=== PATIENT | male | born 1945 | race Caucasian/White ===

== ENCOUNTER 2016-05-31 11:59 | Inpatient (IN) | payer MEDICARE, OTHER ==
[~2016-05-31] VITALS: Ht 177.8 cm; Wt 78.7 kg
[2016-05-31] VITALS (9 sets, daily range): BP systolic 88–121; BP diastolic 53–96
[2016-05-31] MEDS ORDERED: ALBUTEROL/IPRATROPIUM 3MG-0.5MG/3ML (DUONEB) NEB VIAL INH ONE (12:10)
[2016-05-31] MEDS ORDERED: NS IV 500 ML 500 ML IV SCH (12:10)
[2016-05-31] MEDS ORDERED: SODIUM CHLORIDE FLUSH 3 ML SYR IV ONE (12:10)
[2016-05-31 12:32] LABS: BASOPHILS % (AUTO) 0 % (0-2); EOSINOPHILS # (AUTO) 0.2 10^3uL; EOSINOPHILS % (AUTO) 1 % (0-4); LYMPHOCYTES # (AUTO) 1.4 X10^3; MEAN CORPUSCULAR HEMOGLOBIN 29.1 PG (26.0-34.0); MEAN CORPUSCULAR HGB CONC 32.4 g/dL (31.0-37.0); MEAN CORPUSCULAR VOLUME 90 FL (80-100); MEAN PLATELET VOLUME 8.9 FL (6.0-9.5); MONOCYTES # (AUTO) 1.6 X10^3; MONOCYTES % (AUTO) 11 % (3-11); NEUTROPHILS # (AUTO) 10.8 X10^3; NEUTROPHILS % (AUTO) 77 % (51-67); PLATELET COUNT 410 10^3uL (150-450); WHITE BLOOD COUNT 14.13 10^3uL (4.0-11.0)
[2016-05-31 12:50] LABS: ALBUMIN 3.8 g/dL (3.4-5.0); ALKALINE PHOSPHATASE 109 U/L (38-126); ANION GAP 16.7 MEQ/L (3-15); BUN/CREATININE RATIO 19 (10-20); CALCULATED IONIZED CALCIUM 4.1 mg/dL (3.8-4.6); CREATINE KINASE 39 U/L (55-170); TOTAL PROTEIN 6.8 g/dL (6.4-8.5)
[2016-05-31] MEDS ORDERED: DILTIAZEM IV FOR DRIP 125 MG in SODIUM CHLORIDE 100 ML IV PRN (14:05)
[2016-05-31] MEDS ORDERED: DILTIAZEM 25 MG/5 ML (CARDIZEM) VIAL IV ONE (14:05)
--- NOTE | 2016-05-31 17:20 | NUR ---
Patient arrives to room 345. monitors placed and assessment is ongoing
--- NOTE | 2016-05-31 17:43 | NUR ---
Late Entry: ICU nurse (Av) notified that Patient still needed to provide Urine Specimen.
[2016-05-31] MEDS ORDERED: VANCOMYCIN 1,000 MG in SODIUM CHLORIDE 250 ML IV ONE (19:10)
[2016-05-31] MEDS ORDERED: VANCOMYCIN PHARMACY PROTOCOL IV SCH (19:10)
--- NOTE | 2016-05-31 19:15 | NUR ---
Report received, care assumed. Pt resting in bed. O2 on at 6L per oxymask. Pt denies needs now.
--- NOTE | 2016-05-31 19:16 | NUR ---
report given to Inez LEROY and care relinquished
--- NOTE | 2016-05-31 19:30 | NUR ---
Lab in with pt to draw. Pt cooperative. Assessment completed, pt denies discomfort. Reports feeling better than he did upon admittance. No other needs at this time. Call light in reach.
--- NOTE | 2016-05-31 19:45 | NUR ---
Pt's spouse arrived. Is at bedside with pt. No needs.
[2016-05-31] MEDS ORDERED: SODIUM CHLORIDE 250 ML ONE (19:53)
[2016-05-31] MEDS ORDERED: VANCOMYCIN 1000 MG VIAL ONE (19:54)
[2016-05-31] MEDS ORDERED: VANCOMYCIN IV SCH (20:10)
[2016-05-31] MEDS ORDERED: SODIUM CHLORIDE IV SCH (20:10)
--- NOTE | 2016-05-31 20:10 | NUR ---
Started 2nd IV site to RFA 20G, 1st attempt successful.
[2016-05-31] MEDS: SODIUM CHLORIDE FLUSH 10 ML SYR IV PRN (20:21)
--- NOTE | 2016-05-31 20:30 | NUR ---
IV Vanco abx infusing. Decreased Cardizem drip to 10ml/hr based on blood pressure 88/57. Heart rate 88. Will continue to monitor.
--- NOTE | 2016-05-31 20:35 | NUR ---
Decreased Cardizem drip to 8ml/hr. BP 92/56, pulse rate 89. Will continue to monitor.
--- NOTE | 2016-05-31 20:50 | NUR ---
Cardizem drip remains at 8 ml/hr. Pulse rate increased to 95-98. BP 102/55. Will continue to monitor.
[2016-05-31] MEDS ORDERED: ALBUTEROL/IPRATROPIUM 3MG-0.5MG/3ML (DUONEB) NEB VIAL INH PRN (21:05)
[2016-05-31] MEDS ORDERED: ALBUTEROL HFA (VENTOLIN HFA) COMMON CANNISTER IH PRN (21:05)
--- NOTE | 2016-05-31 21:20 | NUR ---
Decreased Diltiazem drip to 5 mg/hr. BP 94/56. Will continue to monitor.
--- NOTE | 2016-05-31 22:20 | NUR ---
Stopped Diltiazem drip. Will continue to monitor.
--- NOTE | 2016-05-31 22:38 | NUR ---
Changed oxy mask to NC per pt request. O2 on at 4L per NC. Pt states he normally uses 4L at home. Explained to pt O2 sat will be monitored and oxy mask may still be needed. Pt stated his understanding. No other needs. Call light in reach.
[2016-05-31] MEDS: CEFEPIME 1,000 MG in SODIUM CHLORIDE 100 ML IV SCH (22:53)
--- NOTE | 2016-05-31 23:15 | NUR ---
Pt's tele shows occ. sinus rhythm activity. Appears to be converting from A-flutter/A-fib. Will continue to monitor.
[2016-06-01] VITALS (20 sets, daily range): BP systolic 106–142; BP diastolic 58–96
--- NOTE | 2016-06-01 00:10 | NUR ---
Pt's O2 sat dropped to 85-86%. Placed back on oxy mask at 6L.
--- NOTE | 2016-06-01 05:15 | NUR ---
Pt resting well. No signs discomfort. Pt has periods of apnea during sleep, O2 sats decline to 84-86% during thos etimes. Otherwise, O2 sats are 94-98% on 6L per oxymask. No needs at this time. Call light in reach.
--- NOTE | 2016-06-01 05:40 | NUR ---
Pt awake, voided without difficulty in urinal. Urine specimen collected. Pt also gave sputum sample for lab specimen. No other needs at this time. Call light in reach. IVF continue to infuse. Cardizem drip remains off. Will continue to monitor.
[2016-06-01] MEDS: CEFEPIME 1,000 MG in SODIUM CHLORIDE 100 ML IV SCH ×3 (05:48→23:04)
[2016-06-01 06:38] LABS: BASOPHILS % (AUTO) 0 % (0-2); EOSINOPHILS # (AUTO) 0.2 10^3uL; EOSINOPHILS % (AUTO) 2 % (0-4); LYMPHOCYTES # (AUTO) 1.4 X10^3; MEAN CORPUSCULAR HEMOGLOBIN 28.9 PG (26.0-34.0); MEAN CORPUSCULAR HGB CONC 31.8 g/dL (31.0-37.0); MEAN CORPUSCULAR VOLUME 91 FL (80-100); MONOCYTES # (AUTO) 1.7 X10^3; MONOCYTES % (AUTO) 15 % (3-11); NEUTROPHILS # (AUTO) 8.1 X10^3; NEUTROPHILS % (AUTO) 70 % (51-67); PLATELET COUNT 344 10^3uL (150-450); WHITE BLOOD COUNT 11.53 10^3uL (4.0-11.0)
[2016-06-01 06:51] LABS: ANION GAP 11.1 MEQ/L (3-15); TOTAL PROTEIN 5.9 g/dL (6.4-8.5)
[2016-06-01 07:56] LABS: BILIRUBIN,URINE Negative (Negative); CLARITY,URINE Clear; COLOR,URINE Yellow; GLUCOSE, URINE (UA) Negative (Negative); LEUKOCYTE ESTERASE ,URINE Negative (Negative); PH,URINE 5.5 (5.0 - 8.0); UROBILINOGEN,URINE 0.2 mg/dL (0.2-1.0)
[2016-06-01] MEDS ORDERED: AZELASTINE NS PRN (08:25)
[2016-06-01] MEDS ORDERED: VANCOMYCIN 1,000 MG in SODIUM CHLORIDE 250 ML IV SCH (09:00)
[2016-06-01] MEDS: TIOTROPIUM 18 MCG/CAP (SPIRIVA) INHALER (5 CAPS) IH SCH (09:11)
--- NOTE | 2016-06-01 09:13 | NUR ---
NUTRITION ASSESSMENT Level 1 Patient: Dwight EnglishJr. Age/Sex: 70/M Date Screened: 06-01-16 Weight: 186.7#/84.9 kg Height: 70 inches Primary Diagnosis: a fib Diet Order: cardiac Relevant labs: glucose 105 Food allergies: N Nutrition Assessment Criteria Age over 80: N Body Mass Index (BMI) under 19: N Admission Screening Indicates Risk? 3 points Moderate/High Risk Diagnosis: N TPN or PPN: N NPO or clear liquid diet: N Serum Glucose <70 or >180: N Hgb A1c >6.7: N/A Total: 3 points Risk Screen: __ Patient at low nutritional risk based on available data; reevaluate in 5-7 days _X_ Patient at moderate nutritional risk based on available data; reevaluate in 3-5 days __ Patient at high nutritional risk; complete Nutrition Assessment within 48 hours of admission. Comments: Weight is up compared with last admission (173# in 2015); pt.'s UBW runs between 170-180#. No GI concerns at this time. He likes chocolate Ensure. Will reassess as documented above.
[2016-06-01] MEDS: ENOXAPARIN 40 MG/0.4 ML (LOVENOX) SYR SC SCH (09:32)
[2016-06-01] MEDS: FAMOTIDINE 20 MG (PEPCID) TABLET PO SCH ×2 (09:32→21:05)
[2016-06-01] MEDS: VANCOMYCIN 1500 MG in NS IV 300 ML IV SCH ×6 (09:54→21:04)
--- NOTE | 2016-06-01 10:30 | NUR ---
Pt stood at the side of the bed to use the urinal and became very SOA. Pts sat dropped down to 83 and required the oxymask to be reapplied. Pts color was ashen and it took about 3 minutes for him to return to normal color and sat to return to the 90's. Family at bedside. Pt voided 350 cc of dark sandip, odorous urine. Instructed pt to drink more fluids. states at home he drinks several cups of water a day.
[2016-06-01] MEDS ORDERED: methylPREDNISolone 125 MG (Solu-MEDROL) VIAL IV ONE (11:00)
--- NOTE | 2016-06-01 11:00 | NUR ---
New order received from Dr. Negron. Solu Medrol 125 mg IV given per orders. IV continues to infuse at 100cc/hr. Pt has O2 going at 5L/NC.
[2016-06-01] MEDS: SODIUM CHLORIDE FLUSH 10 ML SYR IV PRN (11:01)
[2016-06-01] MEDS: SPIRONOLACTONE 25 MG (ALDACTONE) TABLET PO SCH (12:00)
--- NOTE | 2016-06-01 12:43 | NUR ---
MULTIDISCIPLINARY MTG/DR. KAM: Pt. receiving vanco and cefepime. Pt. has been on 5L oxygen and he got up to use the restroom and his O2 dropped to 83% and he was put on oxymask at and it took awhile for him to recover. Pt. normally uses 2L continuously at home. Pt. has breathing treatments ordered.. No discharge needs identified at this time.
--- NOTE | 2016-06-01 18:05 | NUR ---
MED REC COMPLETE--Current med list obtained via patient interview and prescription bottles. Patient interview conducted by Sharif English PharmD Candidate 2017. Patient is aware of what he is taking and how. Patient had previously been on Spiriva Respimat, but prescriber switched to Stiolto Respimat. Patient tried Stiolto for a week and decided it did not work; he is currently on neither one of these medications. Patient was prescribed metoprolol 25 mg BID with meals. This medication was not continued in the outpatient setting; it may have slipped through the cracks.
--- NOTE | 2016-06-01 19:00 | NUR ---
Pt has been standing at the bedside to use the urinal, when he does he becomes SOA. After eating lunch pt became SOA and required that the oxymask be reapplied. Pt has had and stepdaughter at his bedside most of the day. Dr. Negron was present at 1600 to talk with pt and family about pt condition. Will continue to monitor closely. Monitor continues to shows ST. IV site patent without redness or edema. Edema noted in lower extremities.
--- NOTE | 2016-06-01 19:10 | NUR ---
Report received, care assumed. Pt sitting up on side of bed. Reports feeling better today, still not great though. No needs at this time. Call light in reach.
[2016-06-01] MEDS ORDERED: VANCOMYCIN COMPOUNDED BY PHARMACY IV SCH (21:00)
--- NOTE | 2016-06-01 22:30 | NUR ---
Pt resting well. No c/o discomfort or SOA. IVF continue to infuse. No needs at this time. Call light in reach.
[2016-06-02] VITALS (8 sets, daily range): BP systolic 126–161; BP diastolic 76–94
--- NOTE | 2016-06-02 01:00 | NUR ---
Pt appears to be sleeping, eyes closed, respirations even et unlabored. No signs discomfort. Pt has been up once to use urinal, stood at bed with no adverse effect. Call light in reach. No needs at this time.
--- NOTE | 2016-06-02 04:40 | NUR ---
Pt awake, requests coffee. Pt ready [facility]. Pt very talkative, wants to sit up for a while. O2 sats at 97-98%, reduced O2 to 3L per NC. Will continue to monitor. Coffee provided for pt. No other needs at this time.
[2016-06-02] MEDS: CEFEPIME 1,000 MG in SODIUM CHLORIDE 100 ML IV SCH ×3 (05:30→22:00)
--- NOTE | 2016-06-02 05:35 | NUR ---
Pt resting quietly in bed with lights turned down again. O2 sats 95% on 3L per NC. No needs at this time. Call light in reach.
[2016-06-02 06:18] LABS: BASOPHILS % (AUTO) 0 % (0-2); EOSINOPHILS % (AUTO) 0 % (0-4); LYMPHOCYTES # (AUTO) 0.7 X10^3; MEAN CORPUSCULAR HEMOGLOBIN 28.9 PG (26.0-34.0); MEAN CORPUSCULAR HGB CONC 32.6 g/dL (31.0-37.0); MEAN CORPUSCULAR VOLUME 89 FL (80-100); MEAN PLATELET VOLUME 9.3 FL (6.0-9.5); MONOCYTES # (AUTO) 0.6 X10^3; MONOCYTES % (AUTO) 7 % (3-11); NEUTROPHILS # (AUTO) 7.9 X10^3; NEUTROPHILS % (AUTO) 85 % (51-67); PLATELET COUNT 359 10^3uL (150-450); WHITE BLOOD COUNT 9.25 10^3uL (4.0-11.0)
[2016-06-02 06:43] LABS: ALBUMIN 3.2 g/dL (3.4-5.0); ANION GAP 13.8 MEQ/L (3-15); MAGNESIUM* 1.9 mg/dL (1.6-2.3); PHOSPHORUS 3.3 mg/dL (2.4-4.9)
[2016-06-02] MEDS: TIOTROPIUM 18 MCG/CAP (SPIRIVA) INHALER (5 CAPS) IH SCH (08:03)
[2016-06-02] MEDS ORDERED: FUROSEMIDE 40 MG (LASIX) TAB PO PRN ×2 (08:05→21:00)
[2016-06-02] MEDS: VANCOMYCIN 1500 MG in NS IV 300 ML IV SCH ×3 (09:00)
[2016-06-02] MEDS ORDERED: DILTIAZEM CD 180 MG (CARDIZEM CD) CAP PO SCH (09:00)
[2016-06-02] MEDS ORDERED: PANTOPRAZOLE 40 MG (PROTONIX) TAB PO SCH (09:00)
--- NOTE | 2016-06-02 12:34 | NUR ---
Pt. noted to have skin tear to L lateral forearm below elbow. Pt. states his skin tears easily. Skin cleansed with NS, telfa applied and secured with Coban.
[2016-06-02] MEDS: SPIRONOLACTONE 25 MG (ALDACTONE) TABLET PO SCH (13:42)
[2016-06-02] MEDS: FAMOTIDINE 20 MG (PEPCID) TABLET PO SCH ×2 (13:42→21:24)
[2016-06-02] MEDS: ENOXAPARIN 40 MG/0.4 ML (LOVENOX) SYR SC SCH (13:43)
[2016-06-02] MEDS ORDERED: VANCOMYCIN COMPOUNDED BY PHARMACY IV SCH (13:49)
--- NOTE | 2016-06-02 15:10 | NUR ---
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 Sputum culture positive for gram positive cocci. O: 70 y/o M, wt = 85.3 kg, SCr = 0.60 ZvGp=165.6 ml/min A/P:Started on Vanco 1500mg q12h. Trough today at 13.2, will continue with current dosing.
[2016-06-02] MEDS ORDERED: DILTIAZEM IV FOR DRIP 125 MG in SODIUM CHLORIDE 100 ML IV PRN (18:40)
[2016-06-02] MEDS ORDERED: COMPOUNDED BY PHARMACY IV SCH (18:40)
[2016-06-02] MEDS ORDERED: methylPREDNISolone 125 MG (Solu-MEDROL) VIAL IV SCH (18:45)
[2016-06-02] MEDS ORDERED: methylPREDNISolone 125 MG (Solu-MEDROL) VIAL IM ONE (18:45)
--- NOTE | 2016-06-02 19:08 | NUR ---
Arrives per w/c accompanied by ICU staff. Alert and oriented x4.Skin w/p/d. Resp regular and unlabored.
[2016-06-02] MEDS ORDERED: VANCOMYCIN PHARMACY PROTOCOL IV SCH (19:10)
[2016-06-02] MEDS ORDERED: AZELASTINE NS PRN (20:25)
[2016-06-02] MEDS: MOMETASONE INH SCH (20:44)
[2016-06-02] MEDS ORDERED: SODIUM CHLORIDE 250 ML ONE (20:58)
[2016-06-02] MEDS ORDERED: VANCOMYCIN 500 MG VIAL ONE (20:59)
[2016-06-02] MEDS ORDERED: VANCOMYCIN 1000 MG VIAL ONE (20:59)
[2016-06-02] MEDS ORDERED: ATORVASTATIN 10 MG (LIPITOR) TABLET PO SCH (21:00)
[2016-06-02] MEDS ORDERED: MOMETASONE INH SCH (21:00)
[2016-06-02] MEDS ORDERED: ALBUTEROL HFA (VENTOLIN HFA) COMMON CANNISTER IH PRN (21:05)
[2016-06-02] MEDS: ATORVASTATIN 10 MG (LIPITOR) TABLET PO SCH (21:23)
[2016-06-02] MEDS: VANCOMYCIN 1,500 MG, VANCOMYCIN PHARMACY PROTOCOL 1 EACH in SODIUM CHLORIDE 250 ML, SOD... IV SCH (21:28)
[2016-06-02] MEDS ORDERED: SODIUM CHLORIDE FLUSH 0 ML ONE (23:12)
[2016-06-03] VITALS (7 sets, daily range): BP systolic 115–146; BP diastolic 69–85
[2016-06-03] MEDS: CEFEPIME 1,000 MG in SODIUM CHLORIDE 100 ML IV SCH ×3 (06:34→22:00)
[2016-06-03] MEDS: PANTOPRAZOLE 40 MG (PROTONIX) TAB PO SCH (06:34)
[2016-06-03] MEDS: TIOTROPIUM 18 MCG/CAP (SPIRIVA) INHALER (5 CAPS) IH SCH (07:26)
--- NOTE | 2016-06-03 08:00 | NUR ---
Pt sitting upright in chair for breakfast meal. Denies pain, n/v, palpitations. States "I feel real good!" Takes AM meds without difficulty. IVF infusing as ordered. Remains on 3L nc- resp even, nonlab. Skin warm dry intact. Call light within reach-calls appropriately.
[2016-06-03] MEDS: DILTIAZEM CD 180 MG (CARDIZEM CD) CAP PO SCH (08:09)
[2016-06-03] MEDS: predniSONE 20 MG (DELTASONE) TABLET PO SCH (08:09)
[2016-06-03] MEDS: ENOXAPARIN 40 MG/0.4 ML (LOVENOX) SYR SC SCH (08:09)
[2016-06-03] MEDS: FAMOTIDINE 20 MG (PEPCID) TABLET PO SCH ×2 (08:09→21:00)
[2016-06-03] MEDS: VANCOMYCIN 1,500 MG, VANCOMYCIN PHARMACY PROTOCOL 1 EACH in SODIUM CHLORIDE 250 ML, SOD... IV SCH ×2 (08:12→21:00)
[2016-06-03] MEDS ORDERED: NS FLUSH 3 ML PRN IV (08:35)
[2016-06-03] MEDS: NS FLUSH 3 ML DAILY IV SCH (09:00)
--- NOTE | 2016-06-03 11:37 | NUR ---
Pt ambulated to shower with walker, accompanied by Perla Weeks PT and [employer] to help with IV pole.
[2016-06-03] MEDS: ALBUTEROL/IPRATROPIUM 3MG-0.5MG/3ML (DUONEB) NEB VIAL INH PRN ×2 (11:59→18:54)
--- NOTE | 2016-06-03 12:07 | NUR ---
Pt finished in shower, is SOA, Tachy @111 bpm. Requesting breathing tx- Nicole RT to room for this. TEDS placed- 1+ pitting edema to BLE.
[2016-06-03] MEDS ORDERED: SODIUM CHLORIDE FLUSH 10 ML SYR IV PRN (12:10)
[2016-06-03] MEDS: SPIRONOLACTONE 25 MG (ALDACTONE) TABLET PO SCH (12:10)
--- NOTE | 2016-06-03 14:00 | NUR ---
IV SL at this time per BERTO from Dr. Paz.
[2016-06-03] MEDS: FUROSEMIDE 20 MG (LASIX) TAB PO SCH (15:48)
--- NOTE | 2016-06-03 15:58 | NUR ---
Tele dc'd via orders from Dr. Dominguez
--- NOTE | 2016-06-03 18:13 | NUR ---
Pt eating supper in chair. Denies needs at this time.
[2016-06-03] MEDS: MOMETASONE INH SCH (18:54)
--- NOTE | 2016-06-03 20:00 | NUR ---
Resting in bed watching TV. Alert and oriented. Denies pain. HOB elevated 30 degrees. No respiratory distress noted. Oxygen remains on at 4 lpm per nasal cannula. IV site without complications noted. Voiding yellow urine per urinal. Sits at edge of the bed to void. No concerns or needs at this time.
[2016-06-03] MEDS: ATORVASTATIN 10 MG (LIPITOR) TABLET PO SCH (21:00)
--- NOTE | 2016-06-03 22:00 | NUR ---
Ready for sleep. Small skin tear on left elbow area cleansed, patted dry and band aid placed loosely over area. TG shapes cut and made into sleeves, per patient request as his skin is fragile and tears easily on the sheets.
[2016-06-04] MEDS: CEFEPIME 1,000 MG in SODIUM CHLORIDE 100 ML IV SCH ×2 (05:43→15:10)
[2016-06-04 06:11] VITALS: BP 114/71
[2016-06-04] MEDS: PANTOPRAZOLE 40 MG (PROTONIX) TAB PO SCH (06:32)
[2016-06-04 06:36] LABS: ALBUMIN 3.5 g/dL (3.4-5.0); ANION GAP 14.4 MEQ/L (3-15); MAGNESIUM* 2.2 mg/dL (1.6-2.3); PHOSPHORUS 3.5 mg/dL (2.4-4.9)
[2016-06-04 07:23] VITALS: BP 125/84
[2016-06-04] MEDS: TIOTROPIUM 18 MCG/CAP (SPIRIVA) INHALER (5 CAPS) IH SCH (07:24)
[2016-06-04] MEDS: ALBUTEROL/IPRATROPIUM 3MG-0.5MG/3ML (DUONEB) NEB VIAL INH SCH ×4 (07:25→20:10)
[2016-06-04] MEDS: FUROSEMIDE 20 MG (LASIX) TAB PO SCH ×2 (07:37→14:37)
[2016-06-04] MEDS: ENOXAPARIN 40 MG/0.4 ML (LOVENOX) SYR SC SCH (07:37)
[2016-06-04] MEDS: predniSONE 20 MG (DELTASONE) TABLET PO SCH (07:38)
[2016-06-04] MEDS: DILTIAZEM CD 180 MG (CARDIZEM CD) CAP PO SCH (07:38)
[2016-06-04] MEDS: VANCOMYCIN 1,500 MG, VANCOMYCIN PHARMACY PROTOCOL 1 EACH in SODIUM CHLORIDE 250 ML, SOD... IV SCH (07:38)
[2016-06-04] MEDS: FAMOTIDINE 20 MG (PEPCID) TABLET PO SCH ×2 (07:38→20:35)
[2016-06-04] MEDS: NS FLUSH 3 ML DAILY IV SCH (07:39)
--- NOTE | 2016-06-04 08:21 | NUR ---
Katlyn Quispe RN spoke to Dr. Paz regarding leaking IV- Dr. Paz gave VORB ok to leave IV out if at baseline O2 status
--- NOTE | 2016-06-04 08:31 | NUR ---
Vancomycin infusion completed due to IV infiltration. Per Dr. Paz no need for new IV site.
[2016-06-04 11:54] VITALS: BP 106/68
[2016-06-04] MEDS: SPIRONOLACTONE 25 MG (ALDACTONE) TABLET PO SCH (12:06)
[2016-06-04 16:00] VITALS: BP 128/78
--- NOTE | 2016-06-04 16:15 | NUR ---
Pt has been indep in room today. Feels "great" expressed multiple times today hopes of going home. Calls appropriately for assist. No IV- okayed to leave out by Dr. Paz. SOA with exertion but quickly recovers within 2-3minutes. Remains on chronic 4L nc.
--- NOTE | 2016-06-04 18:14 | NUR ---
Pt sitting up in chair, eating supper meal. Has previously been in chair with BLE elevated. 2+ Pitting edema. Pt has voided approx 1950ml since 1400. Remains on 4L nc.
[2016-06-04] MEDS: MOMETASONE INH SCH (20:10)
--- NOTE | 2016-06-04 20:13 | NUR ---
Pt found sitting in his chair on 4 l/min NC equal to home use, SPO2 98%, HR 94, RR 18 and non labored with clear BS before and after Duoneb and Asmanex.
[2016-06-04 20:34] VITALS: BP 127/83
[2016-06-04] MEDS: CEFDINIR 300 MG (OMNICEF) CAPSULE PO SCH (20:35)
[2016-06-04] MEDS: ATORVASTATIN 10 MG (LIPITOR) TABLET PO SCH (20:35)
[2016-06-05 00:24] VITALS: BP 119/81
[2016-06-05 04:44] VITALS: BP 105/76
--- NOTE | 2016-06-05 06:01 | NUR ---
Stated early this morning that he slept better than he had in days. Was without complaint throughout the night and noted edema in BLE is improved some.
[2016-06-05] MEDS: PANTOPRAZOLE 40 MG (PROTONIX) TAB PO SCH (06:40)
[2016-06-05] MEDS: ALBUTEROL/IPRATROPIUM 3MG-0.5MG/3ML (DUONEB) NEB VIAL INH SCH ×2 (07:40→12:11)
[2016-06-05] MEDS: TIOTROPIUM 18 MCG/CAP (SPIRIVA) INHALER (5 CAPS) IH SCH (07:40)
[2016-06-05 08:24] VITALS: BP 124/81
[2016-06-05] MEDS: predniSONE 20 MG (DELTASONE) TABLET PO SCH (08:34)
[2016-06-05] MEDS: DILTIAZEM CD 180 MG (CARDIZEM CD) CAP PO SCH (08:34)
[2016-06-05] MEDS: CEFDINIR 300 MG (OMNICEF) CAPSULE PO SCH (08:35)
[2016-06-05] MEDS: FUROSEMIDE 20 MG (LASIX) TAB PO SCH (08:35)
[2016-06-05] MEDS: FAMOTIDINE 20 MG (PEPCID) TABLET PO SCH (08:35)
[2016-06-05] MEDS: ENOXAPARIN 40 MG/0.4 ML (LOVENOX) SYR SC SCH (08:35)
[2016-06-05] MEDS: NS FLUSH 3 ML DAILY IV SCH (08:36)
--- NOTE | 2016-06-05 10:03 | NUR ---
Pt. sitting up in chair this morning. Denies pain and nausea. He does continue to have some shortness of breath with exertion. He states he is going home today. Denies needs at this time.
--- NOTE | 2016-06-05 11:25 | NUR ---
Reviewed discharge medications with patient. Provided patient handout information for new medications. No additional questions or concerns. Patient verbalized understanding of medications.
--- NOTE | 2016-06-05 11:28 | NUR ---
DC instructions have been given to pt, pts. step-daughter and pts. over the phone. All questions answered. Pharmacy has been in to see pt. Packet with H&P and DC Summary given to pt. to take to Dr. Harp.
[2016-06-05 11:34] VITALS: BP 123/74
[2016-06-05] MEDS: SPIRONOLACTONE 25 MG (ALDACTONE) TABLET PO SCH (12:05)
--- NOTE | 2016-06-05 12:30 | NUR ---
Pt. dismissed to home at this time via accompanied by step-daughter Eliseo Christianson CNA, who is also transporting pt. home. All belongings sent with pt. Pt. transported on /.
== END 2016-06-05 12:30 | disposition home or self-care (01) | DRG 871 ==
LOC: EDUNIT# 11:59 → ED 12:00 → ICU 16:36 → MED/SURG 06-02 18:41
PROVIDERS: ADMIT Family Medicine; ATTEND Family Medicine
DX: A41.9 Sepsis, unspecified organism (principal); J18.9 Pneumonia, unspecified organism; J96.20 Acute and chronic respiratory failure, unspecified whether with hypoxia or hypercapnia; J44.0 Chronic obstructive pulmonary disease with (acute) lower respiratory infection; J44.1 Chronic obstructive pulmonary disease with (acute) exacerbation; L03.115 Cellulitis of right lower limb; I48.92 Unspecified atrial flutter; I48.91 Unspecified atrial fibrillation; J84.10 Pulmonary fibrosis, unspecified; M06.9 Rheumatoid arthritis, unspecified; Z99.81 Dependence on supplemental oxygen
CPT/HCPCS: 36415; 71010; 80053; 80069; 80202; 81003; 82550; 82553; 82803; 83605; 83735; 83880; 84145; 84443; 84484; 85025; 85379; 85610; 86140; 87040; 87070; 87205; 93005; 93010; 94640; 94760; 96374; 99284; 99285

== ENCOUNTER → 2016-06-15 | Outpatient (CLI) | payer MEDICARE, OTHER | LOC: RAD 17:16 | PROVIDERS: ATTEND Internal Medicine | DX: J44.1 Chronic obstructive pulmonary disease with (acute) exacerbation (principal); J18.9 Pneumonia, unspecified organism | CPT/HCPCS: 71020 ==

== ENCOUNTER 2016-06-29 17:36 | Inpatient (IN) | payer MEDICARE, OTHER ==
[~2016-06-29] VITALS: Ht 177.8 cm; Wt 78.1 kg
[2016-06-29] MEDS ORDERED: NS IV 500 ML 500 ML IV SCH (17:45)
[2016-06-29] MEDS ORDERED: SODIUM CHLORIDE FLUSH 10 ML SYR IV PRN (18:15)
[2016-06-29] MEDS ORDERED: SODIUM CHLORIDE FLUSH 3 ML SYR IV ONE (18:15)
[2016-06-29 18:30] LABS: MEAN CORPUSCULAR HEMOGLOBIN 29.4 PG (26.0-34.0); MEAN CORPUSCULAR HGB CONC 33.1 g/dL (31.0-37.0); MEAN CORPUSCULAR VOLUME 89 FL (80-100); PLATELET COUNT 459 10^3uL (150-450); WHITE BLOOD COUNT 18.48 10^3uL (4.0-11.0)
[2016-06-29] MEDS ORDERED: KETOROLAC 30 MG/ML (TORADOL) 1 ML VIAL IV ONE (18:35)
[2016-06-29 18:43] LABS: ALBUMIN 4.1 g/dL (3.4-5.0); ANION GAP 17.8 MEQ/L (3-15); TOTAL PROTEIN 7.5 g/dL (6.4-8.5)
[2016-06-29] MEDS ORDERED: ALBUTEROL/IPRATROPIUM 3MG-0.5MG/3ML (DUONEB) NEB VIAL INH ONE (18:45)
--- NOTE | 2016-06-29 19:02 | NUR ---
Report given to RAD Levy
[2016-06-29 19:03] LABS: BAND NEUTROPHILS % 3 % (0-6); EOSINOPHILS % 0 % (0-4); LYMPHOCYTES # 0.2 #; MONOCYTES # 0.7 #; MONOCYTES % 4 % (3-11); RBC MORPH NORMAL (NORMAL); SEGMENTED NEUTROPHILS % 92 % (51-67); TOTAL CELLS COUNTED 100
--- NOTE | 2016-06-29 19:22 | NUR ---
Temp 99.2 F axillary, P 139, RR 25, B/P 76/45, O2 sat 91% on 5L per mask. notified of blood pressure.
[2016-06-29] MEDS ORDERED: SODIUM CHLORIDE 250 ML IV SCH (19:40)
[2016-06-29] MEDS ORDERED: VANCOMYCIN 1,000 MG in SODIUM CHLORIDE 250 ML IV ONE (19:45)
[2016-06-29] MEDS ORDERED: CEFEPIME 2,000 MG in SODIUM CHLORIDE 100 ML IV ONE (19:45)
--- NOTE | 2016-06-29 20:25 | NUR ---
Dr. Tyler in room examing pt.
[2016-06-29] MEDS ORDERED: FUROSEMIDE 40 MG (LASIX) TAB PO PRN (20:40)
[2016-06-29] MEDS ORDERED: ACETAMINOPHEN 500 MG TAB (TYLENOL) PO PRN (20:40)
[2016-06-29] MEDS ORDERED: ONDANSETRON 2 MG/ML (Z0FRAN) 2 ML VIAL IV PRN (20:50)
[2016-06-29] MEDS ORDERED: VANCOMYCIN PHARMACY PROTOCOL IV SCH (20:50)
[2016-06-29] MEDS ORDERED: FLUCONAZOLE 200 MG/100 ML 100 ML IV SCH (20:50)
[2016-06-29] MEDS ORDERED: morphine INJ 4 MG/ML 1 ML SYRINGE IV PRN (20:50)
[2016-06-29] MEDS ORDERED: ALBUTEROL 0.083% NEB SOLUTION 2.5 MG/3 ML VIAL INH PRN (20:50)
[2016-06-29] MEDS: AZELASTINE NS SCH (21:00)
--- NOTE | 2016-06-29 21:14 | NUR ---
Pt received from ER by giovanny on 5 l/min OM, SPO2 90-92%
[2016-06-29 21:22] VITALS: BP 82/59
--- NOTE | 2016-06-29 21:30 | NUR ---
Pt admitted to Room 345 via gurney from ER. Pt admitted for sepsis. Pt arrived alert and oriented on 5L O2 by oxymask. Pt transferred self from gurney to bed with some assistance. Pt very fatigued and tachypneic with O2 sat at 93%. Pt's temp 99.8. Pt oriented to plan of care and settled for the night. Pt states he just wants to sleep. Turned lights down for patient's comfort. Will continue to monitor. Call light in reach.
[2016-06-29] MEDS: D5 1/2 NS W/KCL 20 MEQ/L 1,000 ML IV SCH (21:41)
[2016-06-29] MEDS: ENOXAPARIN 40 MG/0.4 ML (LOVENOX) SYR SC SCH (21:43)
[2016-06-29 22:00] VITALS: BP 98/55
[2016-06-29] MEDS ORDERED: CEFEPIME 2,000 MG in SODIUM CHLORIDE 100 ML IV SCH (22:00)
[2016-06-29] MEDS ORDERED: VANCOMYCIN 1500 MG in NS IV 300 ML IV SCH ×3 (22:01)
[2016-06-29] MEDS ORDERED: VANCOMYCIN COMPOUNDED BY PHARMACY IV SCH (22:05)
[2016-06-29] MEDS ORDERED: SODIUM CHLORIDE FLUSH 10 ML ONE (22:53)
[2016-06-29] MEDS ORDERED: SODIUM CHLORIDE 100 ML ONE (22:56)
[2016-06-29 23:00] VITALS: BP 96/57
[2016-06-29] MEDS: methylPREDNISolone 125 MG (Solu-MEDROL) VIAL IV SCH (23:33)
--- NOTE | 2016-06-29 23:45 | NUR ---
Gave Tylenol 500 mg PO per prn order for general discomfort and temp of 100.4. Will continue to monitor.
[2016-06-30] VITALS (24 sets, daily range): BP systolic 87–118; BP diastolic 53–73
[2016-06-30] MEDS: ALBUTEROL/IPRATROPIUM 3MG-0.5MG/3ML (DUONEB) NEB VIAL INH SCH ×4 (01:10→19:43)
--- NOTE | 2016-06-30 01:19 | NUR ---
Pt found lying in bed on 5 l/min OM, SPO2 95%, HR 136, RR 24. Pt stood by the side of the bed to use urinal just prior to getting Tx, SPO2 dropped into low 80s, O2 increased to 10 l/min OM, SPO2 at 89-91% while standing. Tx of Duoneb given when he laid back down, BS Rhonchi before and after throughout that do no not clear with moderate cough.
[2016-06-30] MEDS ORDERED: CEFEPIME 2 GM (MAXIPIME) VIAL IV ONE (04:04)
[2016-06-30] MEDS ORDERED: SODIUM CHLORIDE 100 ML ONE (04:17)
[2016-06-30] MEDS: CEFEPIME 2,000 MG in SODIUM CHLORIDE 100 ML IV SCH ×4 (04:20→21:16)
--- NOTE | 2016-06-30 05:30 | NUR ---
Pt has rested well most of the night in between interventions. Pt's O2 has been decreased from 5L to 4L per oxymask. O2 sats are 94-95%. Pt's heart rate has been 92-98 bpm in the last couple of hours. Respirations are even et less labored. Pt does become labored with any significant position changes or activity. Pt presently resting well. Afebrile now. No reports of discomfort. No needs at this time. Will continue to monitor.
[2016-06-30] MEDS ORDERED: PANTOPRAZOLE 40 MG (PROTONIX) TAB PO ONE (05:49)
[2016-06-30] MEDS: methylPREDNISolone 125 MG (Solu-MEDROL) VIAL IV SCH ×2 (05:50→12:45)
[2016-06-30] MEDS: D5 1/2 NS W/KCL 20 MEQ/L 1,000 ML IV SCH (05:50)
[2016-06-30] MEDS: PANTOPRAZOLE 40 MG (PROTONIX) TAB PO SCH (06:00)
[2016-06-30 06:03] LABS: MEAN CORPUSCULAR HEMOGLOBIN 29.8 PG (26.0-34.0); MEAN CORPUSCULAR HGB CONC 33.3 g/dL (31.0-37.0); MEAN CORPUSCULAR VOLUME 90 FL (80-100); MEAN PLATELET VOLUME 8.8 FL (6.0-9.5); PLATELET COUNT 342 10^3uL (150-450); WHITE BLOOD COUNT 19.87 10^3uL (4.0-11.0)
--- NOTE | 2016-06-30 06:20 | NUR ---
Pt woke for AM meds. Took without difficulty. Pt states he wants to sleep more, declines using urinal and other needs. Call light in reach.
[2016-06-30 06:52] LABS: BAND NEUTROPHILS % 6 % (0-6); EOSINOPHILS % 0 % (0-4); LYMPHOCYTES # 0.8 #; MONOCYTES # 0.8 #; MONOCYTES % 4 % (3-11); SEGMENTED NEUTROPHILS % 86 % (51-67); TOTAL CELLS COUNTED 100
[2016-06-30 06:53] LABS: RBC MORPH NORMAL (NORMAL)
[2016-06-30 06:55] LABS: ALBUMIN 2.8 g/dL (3.4-5.0); ANION GAP 14.6 MEQ/L (3-15); CALCULATED IONIZED CALCIUM 3.9 mg/dL (3.8-4.6); TOTAL PROTEIN 5.6 g/dL (6.4-8.5)
--- NOTE | 2016-06-30 07:00 | NUR ---
Report received from Inez LEROY and care assumed.
--- NOTE | 2016-06-30 07:30 | NUR ---
Pt is sleeping, relaxed, head elevated, tolerated tx well, BS are clear, pt is on 4L oxi mask, SPO2 92%
--- NOTE | 2016-06-30 07:50 | NUR ---
Oxymask increased to 6L due to sats dropping into the low 80s. Pt up at bedside to void, 500cc of sandip urine. Monitor now showing ST. Assessments completed.
--- NOTE | 2016-06-30 08:00 | NUR ---
NC applied at 6L so pt could eat breakfast, sitting on side of bed. Pt sats dropping RT called and High flow NC applied at [address] Paz into examine pt. New orders, pt out of isolation. Fluid bolus ordered. High flow oxygen now down to 5L at 0845 due to sats being in the 90's.
[2016-06-30] MEDS ORDERED: FLUCONAZOLE 200 MG/100 ML 100 ML IV SCH (08:01)
[2016-06-30] MEDS ORDERED: morphine INJ 2 MG/ML 1 ML SYRINGE IV PRN (08:05)
[2016-06-30] MEDS: FERROUS SULFATE 325 MG (IRON) TABLET PO SCH ×2 (08:11→17:41)
[2016-06-30] MEDS ORDERED: VANCOMYCIN COMPOUNDED BY PHARMACY IV SCH (08:12)
[2016-06-30] MEDS ORDERED: ACETAMINOPHEN 325 MG TAB (TYLENOL) PO PRN (08:15)
--- NOTE | 2016-06-30 08:35 | NUR ---
Vancomycin Dosing: Pharmacy managed S: Severe Sepsis: COPD exacerbation, CHF, fungal esophagitis. Cultures pending. Treating with cefepime, fluconazole, and vancomycin. O: 70y/o M, wt = 76.8 kg, SCr = 1.16 CrCl = 64 ml/min A/P: Vancomycin 1000mg IV initially then 1500mg IV q18hr. Predicted trough of 17 mcg/mL for therapeutic goal of 15-20mcg/ml. Trough to be drawn before 5th dose (07-02-16 @ 1530). Will monitor and adjust if needed. Addendum: 07/01/16 at 1356 by Maria Del [facility] Vancomycin dosing times changed. Readjusted trough for 07-02-16 @ 2100.
--- NOTE | 2016-06-30 09:00 | NUR ---
Fluid bolus of NS started at 500cc/hr. Pt resting in bed at present.
[2016-06-30] MEDS: BUDESONIDE NEBS 0.5 MG/2ML (PULMICORT) AMP INH SCH ×2 (09:45→19:43)
--- NOTE | 2016-06-30 09:47 | NUR ---
0.5mg Pulmicort started and given and this time, pt is on 5L high flow NC, SPO2 93% when I walked into room. Pt is awake and alert, BS are clear, sightly diminished. Pt resting at this time.
[2016-06-30] MEDS: ASCORBIC ACID 500 MG (VITAMIN C) TABLET PO SCH (10:32)
[2016-06-30] MEDS: guaiFENesin ER 600 MG (MUCINEX) TAB PO SCH ×2 (10:32→20:40)
[2016-06-30] MEDS: VANCOMYCIN 1,500 MG, VANCOMYCIN PHARMACY PROTOCOL 1 EACH in SODIUM CHLORIDE 250 ML, SOD... IV SCH (10:33)
[2016-06-30] MEDS: ENOXAPARIN 40 MG/0.4 ML (LOVENOX) SYR SC SCH (10:33)
--- NOTE | 2016-06-30 10:33 | NUR ---
Vanco 1500 mg IV started infusing per pump.
[2016-06-30] MEDS: AZELASTINE NS SCH ×2 (10:34→20:40)
[2016-06-30] MEDS: NS FLUSH 3 ML DAILY IV SCH (11:00)
--- NOTE | 2016-06-30 11:00 | NUR ---
Pt up to toilet had a med courtney semi formed stool and voided 400 cc. Pt sats droppping into the 70's. Pt returned to bed and oxymask reapplied at 10L to help him recover. Able to reduce the oxymask to 6L after 15 minutes, sats now in the 90's. LAC IV site infiltrated and removed at this time. Pt now having runs of PVC's. Pt continues to have weak non-productive cough. SCDs on at present. Pt denies any needs at present. Will continue to monitor closely.
--- NOTE | 2016-06-30 11:14 | NUR ---
MED REC COMPLETE--current med list obtained from prescription bottles and patient interview. Patient's home Tramadol 50 mg tablets (#15) housed in pharmacy [facility].
[2016-06-30] MEDS: SPIRONOLACTONE 25 MG (ALDACTONE) TABLET PO SCH (12:44)
--- NOTE | 2016-06-30 12:53 | NUR ---
NUTRITION ASSESSMENT Level 1 Patient: Dwight EnglishJr. Age/Sex: 70/M Date Screened: 06-30-16 Weight: 168.9#/76.8 kg Height: 70 inches Primary Diagnosis: sepsis Diet Order: cardiac Relevant labs: sodium 131, glucose 200, CRP 21.00 Food allergies: N Nutrition Assessment Criteria Age over 80: N Body Mass Index (BMI) under 19: N Admission Screening Indicates Risk? 6 points Moderate/High Risk Diagnosis: 3 points TPN or PPN: N NPO or clear liquid diet: N Serum Glucose <70 or >180: 3 points Hgb A1c >6.7: N/A Total: 12 points Risk Screen: __ Patient at low nutritional risk based on available data; reevaluate in 5-7 days __ Patient at moderate nutritional risk based on available data; reevaluate in 3-5 days _X_ Patient at high nutritional risk; complete Nutrition Assessment within 48 hours of admission.
--- NOTE | 2016-06-30 13:37 | NUR ---
NUTRITION ASSESSMENT Level II Patient: Dwight EnglishJr. Age/Sex: 70/M Date Assessed: 06-30-16 ASSESSMENT Pertinent History: Patient admitted with sepsis and screened at high nutritional risk secondary to recent hospitalization (independent risk factor for poor nutrition) with weight loss, dx sepsis and elevated blood sugar. PMHx includes COPD, pulmonary fibrosis, rheumatoid arthritis, iron deficiency anemia, skin cancer and hx. esophageal cancer. At last admission 1 month ago, pt. weighed 186.7# (compared with 173# in 2015.) Pt.s UBW has been running between 170-180#. He apparently had an EGD 3 weeks ago. Meds/Nutrition: Solumedrol, spironolactone, vitamin C, Ferrous sulfate, Protonix, Lasix Weight: 168.9#/76.8 kg Height: 70 inches Body Mass Index (BMI): 24.3 [place] Body Weight : 166#/75.4 kg % IBW: 101% GASTROINTESTINAL Appetite: good, eating 75% Diet Order: cardiac Unintentional loss of >10 lbs. in 3 months: Yes Difficult to chew/swallow: unsure Diabetes: N Relevant Labs: sodium 131, glucose 200, CRP 21.00 Calculations for Nutritional Assessment Estimated calorie needs: 25-28 kcals/kg = 1,900-2,100 kcals Estimated protein needs: 1.0-1.3 g/kg = 76-98 g./day DIAGNOSIS 1. Nutrition Diagnosis: Unintentional weight loss related to inadequate intake as evidenced by 17.8# (9.5%) weight loss in the past month. NUTRITIONAL INTERVENTION Goal: Patient will receive adequate nutrition to meet his needs. Plan: Will provide cardiac diet as ordered and supplement with chocolate Ensure, since pt. likes this. Will hold off on changing to small portions at meals unless his appetite becomes greatly decreased; offer snacks between meals with an emphasis on protein, goal to be minimum 76 g. protein/day as calculated above. MONITORING & EVALUATION _X_ Monitor patients menu selections _X_ Monitor patients food intake per nursing notes __ Monitor NPO/clear liquid days _X_ Monitor lab values __ Monitor I&O __ Other
--- NOTE | 2016-06-30 13:48 | NUR ---
Pt is laying in bed on 5L oxi mask, SPO2 100%, pt tolerated tx well, BS are clear to diminished.
--- NOTE | 2016-06-30 15:00 | NUR ---
2nd IV started in the LFA with 20 g intracath x 1 attempt, had good blood return and flushed easily with 10cc/NS.
--- NOTE | 2016-06-30 18:50 | NUR ---
Report received, care assumed. Pt resting in bed with no needs. Call light in reach.
--- NOTE | 2016-06-30 20:30 | NUR ---
Pt up to side of bed to use urinal. Voided without difficulty 250cc clear light sandip urine. O2 via oxymask increased to 10L while up. Pt's O2 sats decreased to 88-90% while up. Pt's breathing pattern heavily labored and tachypneic. Once back to bed, pt's O2 sats increased to 94% after a couple of minutes. Decreased O2 back to 4L per oxymask. Pt's labored breathing continued for several minutes while maintaining O2 sats at 92-94%. Pt recovered normal breathing after 10-15 minutes and was able to speak complete sentences without pause. Spouse at bedside. No other needs. Call light in reach.
[2016-06-30] MEDS: ATORVASTATIN 10 MG (LIPITOR) TABLET PO SCH ×2 (20:40→20:51)
[2016-06-30] MEDS: NS FLUSH 10 ML PRN IV (20:42)
[2016-07-01] VITALS (11 sets, daily range): BP systolic 100–134; BP diastolic 64–89
[2016-07-01] MEDS: ALBUTEROL/IPRATROPIUM 3MG-0.5MG/3ML (DUONEB) NEB VIAL INH SCH ×5 (01:51→23:00)
[2016-07-01] MEDS: CEFEPIME 2,000 MG in SODIUM CHLORIDE 100 ML IV SCH ×3 (06:02→21:01)
[2016-07-01] MEDS: NS FLUSH 3 ML PRN IV ×2 (06:02→09:26)
[2016-07-01] MEDS: PANTOPRAZOLE 40 MG (PROTONIX) TAB PO SCH (06:03)
[2016-07-01] MEDS: NS FLUSH 10 ML PRN IV (06:03)
--- NOTE | 2016-07-01 07:15 | NUR ---
See ICU assessment - requested O2 changed to HF nc @ 5 L c humidification; LS posteriorly: diminished throughout c crackles LL's monica L>R; breathing labored worse with talking, bruising arms and hands varying stages of healing - denies pain "just so weak"
[2016-07-01] MEDS: BUDESONIDE NEBS 0.5 MG/2ML (PULMICORT) AMP INH SCH ×2 (07:24→20:09)
--- NOTE | 2016-07-01 07:27 | NUR ---
Pt found lying in bed, awake, on 5 l/min HFNC, SPO2 95%, HR 99, RR 18 and mildly labored. BS have clear upper lungs with fine crackles in bases before Duoneb and Pulmicort via SVN/MASK. BS unchanged post TX.
[2016-07-01] MEDS: FERROUS SULFATE 325 MG (IRON) TABLET PO SCH ×2 (07:56→17:57)
--- NOTE | 2016-07-01 08:10 | NUR ---
Sitting on bed edge for breakfast - O2 per nc increased to 8L per HF - reports sputum is light yellow - talks about esophagus biopsies in the past "I never want to have another one - always precancerous - hurts so bad and terrible trouble swallowing for days after"
[2016-07-01] MEDS ORDERED: methylPREDNISolone 125 MG (Solu-MEDROL) VIAL IV SCH ×2 (09:00→21:00)
[2016-07-01] MEDS ORDERED: ZOLPIDEM 5 MG (AMBIEN) TAB PO PRN (09:10)
[2016-07-01] MEDS: NS FLUSH 3 ML DAILY IV SCH (09:15)
[2016-07-01] MEDS: ENOXAPARIN 40 MG/0.4 ML (LOVENOX) SYR SC SCH (09:15)
[2016-07-01] MEDS: guaiFENesin ER 600 MG (MUCINEX) TAB PO SCH ×2 (09:15→20:55)
[2016-07-01] MEDS: ASCORBIC ACID 500 MG (VITAMIN C) TABLET PO SCH (09:15)
--- NOTE | 2016-07-01 09:15 | NUR ---
Dr Jeffers in room
--- NOTE | 2016-07-01 09:40 | NUR ---
IV RFA leaking c NS flush - DC'd - pressure held X4 minutes until bleeding stopped - drsg applied
[2016-07-01] MEDS ORDERED: NS 100 ML (IVPB) BAG INJ PRN (10:30)
[2016-07-01] MEDS: VANCOMYCIN 1,500 MG, VANCOMYCIN PHARMACY PROTOCOL 1 EACH in SODIUM CHLORIDE 250 ML, SOD... IV SCH (10:35)
[2016-07-01] MEDS: AZELASTINE NS SCH ×2 (10:35→21:00)
[2016-07-01] MEDS: SPIRONOLACTONE 25 MG (ALDACTONE) TABLET PO SCH (12:28)
--- NOTE | 2016-07-01 12:43 | NUR ---
Sitting on bed edge eating lunch - O2 @ 8L per HF nc as requested
--- NOTE | 2016-07-01 13:15 | NUR ---
Pt found lying in bed on 5 l/min NC, SPO2 99%, O2 titrated to home use level of 4 l/min.
--- NOTE | 2016-07-01 13:29 | NUR ---
Pt tolerating 4 l/min HFNC well. SPO2 97%, HR 103, RR 20 and mildly labored. BS clear at this time before Duoneb via SVN which was tolerated well. BS unchanged post Tx. IS x 5 x 1000 ml with good breath hold and technique, stopping between breaths on IS to recover.
[2016-07-01] MEDS ORDERED: COMPOUNDED BY PHARMACY IV SCH (13:40)
[2016-07-01] MEDS ORDERED: morphine INJ 2 MG/ML 1 ML SYRINGE IV PRN (14:05)
[2016-07-01] MEDS ORDERED: ALBUTEROL 0.083% NEB SOLUTION 2.5 MG/3 ML VIAL INH PRN (14:20)
[2016-07-01] MEDS ORDERED: ONDANSETRON 2 MG/ML (Z0FRAN) 2 ML VIAL IV PRN (14:23)
[2016-07-01] MEDS ORDERED: NS 100 ML (IVPB) BAG IV PRN (14:24)
[2016-07-01] MEDS ORDERED: SODIUM CHLORIDE FLUSH 3 ML SYR IV PRN (14:25)
[2016-07-01] MEDS ORDERED: VANCOMYCIN PHARMACY PROTOCOL IV SCH (14:26)
--- NOTE | 2016-07-01 14:40 | NUR ---
Stood @ bedside to void - "I need my oxygen turned up" - labored, SOA, dusky coloring - RR 28-32 - ST 120s - O2 HF nc increased to 8 L as requested
[2016-07-01] MEDS: SODIUM CHLORIDE FLUSH 3 ML SYR IV SCH (14:54)
--- NOTE | 2016-07-01 15:00 | NUR ---
Condition report to MR RN for room 316
--- NOTE | 2016-07-01 15:52 | NUR ---
Transfer from ICU to room 316 per w/c. Settled into bed. Short of breath just visiting. On 5L per high flow nasal canula. Denies pain. Denies needs. Requests soap and water bath later this evening.
--- NOTE | 2016-07-01 16:46 | NUR ---
O2 down to 4L/high flow catheter. Patient tolerates well. Finger SaO2 95%.
--- NOTE | 2016-07-01 17:10 | NUR ---
Up to chair for supper. Feels short of breath. O2 up to 7 L/high flow canula.
--- NOTE | 2016-07-01 19:00 | NUR ---
Has been pleasant this afternoon. Denies pain. Lung sounds remain coarse throughout. Gets short of breath with any activity. Was up in chair for supper.
--- NOTE | 2016-07-01 19:37 | NUR ---
STRETCH TUBAL NETTING APPLIED BILAT TO ARMS PER PATIENT REQUEST . STATES HELPS PROTECT HIS ELBOWS FROM BEING IRRITATED BY THE SHEETS.
[2016-07-01] MEDS ORDERED: CEFEPIME 2 GM (MAXIPIME) VIAL IV ONE (20:48)
[2016-07-01] MEDS: methylPREDNISolone 125 MG (Solu-MEDROL) VIAL IV SCH (20:55)
[2016-07-01] MEDS: ZOLPIDEM 5 MG (AMBIEN) TAB PO PRN (20:55)
[2016-07-01] MEDS ORDERED: FUROSEMIDE 40 MG (LASIX) TAB PO PRN (21:00)
--- NOTE | 2016-07-01 21:18 | NUR ---
STATES DID NOT SLEEP WELL LAST NIGHT AND REQUEST AMBIEN. MED GIVEN.
[2016-07-02 00:14] VITALS: BP 116/61
[2016-07-02] MEDS: VANCOMYCIN 1,500 MG, VANCOMYCIN PHARMACY PROTOCOL 1 EACH in SODIUM CHLORIDE 250 ML, SOD... IV SCH ×2 (03:34→22:01)
[2016-07-02 04:35] VITALS: BP 127/81
[2016-07-02] MEDS: CEFEPIME 2,000 MG in SODIUM CHLORIDE 100 ML IV SCH ×3 (05:59→21:15)
[2016-07-02] MEDS: PANTOPRAZOLE 40 MG (PROTONIX) TAB PO SCH (06:02)
[2016-07-02 06:10] LABS: MEAN CORPUSCULAR HEMOGLOBIN 29.7 PG (26.0-34.0); MEAN CORPUSCULAR HGB CONC 33.3 g/dL (31.0-37.0); MEAN CORPUSCULAR VOLUME 89 FL (80-100); MEAN PLATELET VOLUME 9.2 FL (6.0-9.5); PLATELET COUNT 373 10^3uL (150-450); WHITE BLOOD COUNT 15.26 10^3uL (4.0-11.0)
--- NOTE | 2016-07-02 06:10 | NUR ---
Uneventful night. Pt states that he was able to rest awhile after Ambien administration. Denies c/o. SL patent and intact. Cont oxygen per hi-flow nasal cannula.
--- NOTE | 2016-07-02 06:19 | NUR ---
Spot check of pt's O2 sat is 88% on 4L. Increased to 5L oxygen per hi-flow cannula.
[2016-07-02 06:27] LABS: EOSINOPHILS % 0 % (0-4); LYMPHOCYTES # 1.2 #; MONOCYTES # 0.3 #; MONOCYTES % 2 % (3-11)
[2016-07-02 06:28] LABS: BAND NEUTROPHILS % 5 % (0-6); RBC MORPH NORMAL (NORMAL); SEGMENTED NEUTROPHILS % 85 % (51-67); TOTAL CELLS COUNTED 100
[2016-07-02 06:48] LABS: ALBUMIN 2.7 g/dL (3.4-5.0); ANION GAP 12.6 MEQ/L (3-15); CALCULATED IONIZED CALCIUM 4.5 mg/dL (3.8-4.6); TOTAL PROTEIN 5.4 g/dL (6.4-8.5)
[2016-07-02 07:36] VITALS: BP 119/82
[2016-07-02] MEDS: BUDESONIDE NEBS 0.5 MG/2ML (PULMICORT) AMP INH SCH (07:40)
[2016-07-02] MEDS: ALBUTEROL/IPRATROPIUM 3MG-0.5MG/3ML (DUONEB) NEB VIAL INH SCH ×4 (07:40→23:00)
--- NOTE | 2016-07-02 07:43 | NUR ---
O2 sats 96% on 5L nc. Kathi RT in room for scheduled breathing treatment, titrates O2 to 4L nc- home dose. Will cont to monitor. Call light within reach.
[2016-07-02] MEDS: SODIUM CHLORIDE FLUSH 10 ML SYR IV PRN ×2 (08:24→21:16)
[2016-07-02] MEDS: SODIUM CHLORIDE FLUSH 3 ML SYR IV SCH (08:24)
[2016-07-02] MEDS: methylPREDNISolone 125 MG (Solu-MEDROL) VIAL IV SCH ×2 (08:24→21:16)
[2016-07-02] MEDS: ENOXAPARIN 40 MG/0.4 ML (LOVENOX) SYR SC SCH (08:25)
[2016-07-02] MEDS: FERROUS SULFATE 325 MG (IRON) TABLET PO SCH ×2 (08:25→17:45)
[2016-07-02] MEDS: ASCORBIC ACID 500 MG (VITAMIN C) TABLET PO SCH (08:25)
[2016-07-02] MEDS: guaiFENesin ER 600 MG (MUCINEX) TAB PO SCH ×2 (08:25→21:15)
[2016-07-02] MEDS: fluCOnazole (DIFLUCAN) 100 MG TAB PO SCH (08:26)
--- NOTE | 2016-07-02 08:45 | NUR ---
20g LFA leaking, line clotted off. New 22g IV started to [facility] by Triny Skelton RN- line patent. Solu-medrol given as ordered through this IV.
[2016-07-02] MEDS ORDERED: fluCOnazole (DIFLUCAN) 100 MG TAB PO SCH (09:00)
[2016-07-02] MEDS: AZELASTINE NS SCH ×2 (09:50→21:16)
[2016-07-02] MEDS ORDERED: VANCOMYCIN 1,500 MG, VANCOMYCIN PHARMACY PROTOCOL 1 EACH in SODIUM CHLORIDE 250 ML, SOD... IV SCH (10:00)
[2016-07-02] MEDS: SPIRONOLACTONE 25 MG (ALDACTONE) TABLET PO SCH (11:51)
[2016-07-02 12:30] VITALS: BP 132/90
--- NOTE | 2016-07-02 14:06 | NUR ---
MULTIDISCIPLINARY MTG/DR. TAO: Pt. admitted for HCAP and COPD exacerbation. Pt. was initially admitted to ICU. Pt. is improving and was moved to med/surg floor. Pt. will require 14 days of antibiotics; vano and cefepime. Plan to place a PICC line and admit Pt. to swing bed tomorrow. VINICIO discussed resources through [facility] ex: hospice, palliative care and pulmonary program. The family would like to learn more about these programs. VINICIO contacted [facility] and will set up a time for family to visit with them. No discharge needs identified at this time.
[2016-07-02 15:55] VITALS: BP 113/81
--- NOTE | 2016-07-02 16:05 | NUR ---
Pt. used 5L nc for therapies, stays in mid 90's during exercise and activity. Noted med changes.
--- NOTE | 2016-07-02 17:15 | NUR ---
Clarke Gomes CRNA in room to place PICC line.
[2016-07-02] MEDS: ACETAMINOPHEN 325 MG TAB (TYLENOL) PO PRN (17:45)
--- NOTE | 2016-07-02 17:48 | NUR ---
Tylenol given as ordered for neck discomfort. STAT CXR in room for PICC line placement confirm. Addendum: 07/02/16 at 1749 by Trang Cruz RN PICC line placed to LAC- 5F double lumen PICC.
[2016-07-02] MEDS ORDERED: FLUTICASONE/SALMETEROL HFA 230/21 MCG (ADVAIR) COMMON CANNISTER INH ONE (19:33)
[2016-07-02] MEDS: FLUTICASONE/SALMETEROL HFA 230/21 MCG (ADVAIR) COMMON CANNISTER INH SCH (19:36)
[2016-07-02 20:00] VITALS: BP 117/69
[2016-07-02] MEDS: ZOLPIDEM 5 MG (AMBIEN) TAB PO PRN (21:15)
[2016-07-03] VITALS (7 sets, daily range): BP systolic 112–130; BP diastolic 76–87
[2016-07-03 05:43] LABS: MEAN CORPUSCULAR HEMOGLOBIN 29.3 PG (26.0-34.0); MEAN CORPUSCULAR HGB CONC 32.9 g/dL (31.0-37.0); MEAN CORPUSCULAR VOLUME 89 FL (80-100); MEAN PLATELET VOLUME 9.1 FL (6.0-9.5); PLATELET COUNT 383 10^3uL (150-450); WHITE BLOOD COUNT 11.46 10^3uL (4.0-11.0)
[2016-07-03] MEDS: SODIUM CHLORIDE FLUSH 10 ML SYR IV PRN ×4 (06:03→15:54)
[2016-07-03] MEDS: CEFEPIME 2,000 MG in SODIUM CHLORIDE 100 ML IV SCH ×3 (06:03→21:13)
[2016-07-03] MEDS: PANTOPRAZOLE 40 MG (PROTONIX) TAB PO SCH (06:03)
--- NOTE | 2016-07-03 06:10 | NUR ---
Pt rests well throughout the night. "That ambien sure works well." Pt switches to oxymask for comfort during the night. Returns to hi-flow nasal cannula this morning. Cont on 4L. L PICC line patent and intact. No needs at this time.
[2016-07-03 06:11] LABS: BAND NEUTROPHILS % 2 % (0-6); EOSINOPHILS % 0 % (0-4); LYMPHOCYTES # 0.5 #; MONOCYTES # 0.2 #; MONOCYTES % 2 % (3-11); RBC MORPH NORMAL (NORMAL); SEGMENTED NEUTROPHILS % 92 % (51-67); TOTAL CELLS COUNTED 100
--- NOTE | 2016-07-03 06:22 | NUR ---
Pt sitting at side of bed; requests that his oxygen be turned up to 7L during activities. Turned up to 7L at this time. RT Sudeep aware.
[2016-07-03] MEDS: ALBUTEROL/IPRATROPIUM 3MG-0.5MG/3ML (DUONEB) NEB VIAL INH SCH ×4 (07:00→23:00)
[2016-07-03] MEDS: FLUTICASONE/SALMETEROL HFA 230/21 MCG (ADVAIR) COMMON CANNISTER INH SCH ×2 (07:00→21:16)
[2016-07-03] MEDS: ENOXAPARIN 40 MG/0.4 ML (LOVENOX) SYR SC SCH (08:17)
[2016-07-03] MEDS: AZELASTINE NS SCH ×2 (08:18→21:00)
[2016-07-03] MEDS: guaiFENesin ER 600 MG (MUCINEX) TAB PO SCH ×2 (08:18→21:13)
[2016-07-03] MEDS: methylPREDNISolone 125 MG (Solu-MEDROL) VIAL IV SCH (08:18)
[2016-07-03] MEDS: fluCOnazole (DIFLUCAN) 100 MG TAB PO SCH (08:18)
[2016-07-03] MEDS: FERROUS SULFATE 325 MG (IRON) TABLET PO SCH ×2 (08:18→18:04)
[2016-07-03] MEDS: ASCORBIC ACID 500 MG (VITAMIN C) TABLET PO SCH (08:18)
[2016-07-03] MEDS: SODIUM CHLORIDE FLUSH 3 ML SYR IV SCH (08:19)
--- NOTE | 2016-07-03 08:37 | NUR ---
Pt sitting on edge of bed, eating bfst meal. Takes AM meds without difficulty. Solu-medrol given in PICC without difficulty. Kathi RT has been in already for treatment- titrated pt from 7L nc to 4L nc- patient upset at first for being back down to 4L nc while on edge of bed, patient states that he was told to be on 7L nc while eating- Educated patient that his sats are 94% on 4L while sitting on edge and RT notified of this. Pt verbalizes understanding and states "Ok that is fine."
[2016-07-03] MEDS ORDERED: DOCUSATE SODIUM 100 MG (COLACE) CAP PO PRN (11:15)
[2016-07-03] MEDS ORDERED: MAGNESIUM HYDROXIDE 80MG/ML (MILK OF MAGNESIA) 30 ML UDC PO PRN (11:15)
[2016-07-03] MEDS: SPIRONOLACTONE 25 MG (ALDACTONE) TABLET PO SCH (12:22)
[2016-07-03] MEDS: POLYETHYLENE GLYCOL 17 GM (MIRALAX) PACKET PO SCH (12:22)
--- NOTE | 2016-07-03 13:29 | NUR ---
Cefepime 2g IV infusing as ordered into white port of PICC line.
--- NOTE | 2016-07-03 13:46 | NUR ---
Pt currently on 4L high flow nc, requests to be turned up to 7L nc with activity or sitting on edge of bed.
--- NOTE | 2016-07-03 15:05 | NUR ---
Per family's request SW has arranged for Lidia with [facility] to visit with family about their programs on Thursday 07/06 between 5-5:15.
--- NOTE | 2016-07-03 15:11 | NUR ---
Left PICC dressing changed at this time using sterile technique. Pt tolerated without c/o. Wrapped with coban and patient is thankful for cares.
[2016-07-03] MEDS: VANCOMYCIN 1,500 MG, VANCOMYCIN PHARMACY PROTOCOL 1 EACH in SODIUM CHLORIDE 250 ML, SOD... IV SCH (15:54)
--- NOTE | 2016-07-03 16:35 | NUR ---
Vancomycin Dosing: Pharmacy managed S: Severe Sepsis secondary to HCAP. O: 70y/o M, wt = 78.4 kg, SCr = 0.70 CrCl = 100 ml/min, blood cx negative to date, WBC 11,460 with 92% neutrophils, CRP 2.90 mg/dL, vanco trough 10.7 mcg/mL. A/P: Continue vancomycin dose at 1500mg but change frequency to q12h to achieve therapeutic goal of 15-20mcg/ml. Draw next trough prior to 07/05/16 PM dose (2029) . Will monitor and adjust if needed.
--- NOTE | 2016-07-03 17:36 | NUR ---
Nella Yin (), Jessy and patient in room for family discussion.
[2016-07-03] MEDS: ZOLPIDEM 5 MG (AMBIEN) TAB PO PRN (21:13)
[2016-07-04 04:06] VITALS: BP 121/77
[2016-07-04] MEDS: CEFEPIME 2,000 MG in SODIUM CHLORIDE 100 ML IV SCH ×3 (05:21→23:30)
[2016-07-04 05:54] LABS: MEAN CORPUSCULAR HEMOGLOBIN 29.1 PG (26.0-34.0); MEAN CORPUSCULAR HGB CONC 32.7 g/dL (31.0-37.0); MEAN CORPUSCULAR VOLUME 89 FL (80-100); MEAN PLATELET VOLUME 9.5 FL (6.0-9.5); PLATELET COUNT 435 10^3uL (150-450); WHITE BLOOD COUNT 16.82 10^3uL (4.0-11.0)
[2016-07-04] MEDS: VANCOMYCIN 1500 MG in NS IV 300 ML IV SCH ×6 (05:56→21:27)
[2016-07-04] MEDS: PANTOPRAZOLE 40 MG (PROTONIX) TAB PO SCH (05:57)
--- NOTE | 2016-07-04 06:00 | NUR ---
Pt rests well throughout the night. "I do believe I've caught up on all my sleep." Pt cont on 4L oxygen at rest per hi-flow cannula and 7L with activities. Pt sitting up in chair. Lotion massaged on arms per pt request/comfort. Antibiotics infusing into LAC PICC line w/o difficulty. Denies further needs at this time.
[2016-07-04 06:17] LABS: BAND NEUTROPHILS % 5 % (0-6); EOSINOPHILS % 0 % (0-4); LYMPHOCYTES # 2.7 #; MONOCYTES # 1.3 #; MONOCYTES % 8 % (3-11)
[2016-07-04 06:18] LABS: ANISOCYTOSIS SLIGHT; RBC MORPH SEE REFERENCE (NORMAL); SEGMENTED NEUTROPHILS % 68 % (51-67); TOTAL CELLS COUNTED 100
--- NOTE | 2016-07-04 07:30 | NUR ---
Patient sleeping in recliner upon shift assessment. Arouses easily to verbal stimuli. Alert and oriented X3. Denies pain or SOA at this time but does report increasing oxygen around 0600 for SOA. 7L of 02 intact per nc. Respirations even and non-labored. Intermittent non-productive cough noted. IV antibiotic infusing into left PICC line site without difficulty. Updated patient on plan of care for shift. Patient openly expresses feelings about diagnosis and prognosis. Positive reassurance provided. Call light in reach.
[2016-07-04 07:45] VITALS: BP 141/88
[2016-07-04] MEDS: FLUTICASONE/SALMETEROL HFA 230/21 MCG (ADVAIR) COMMON CANNISTER INH SCH ×2 (07:45→21:13)
[2016-07-04] MEDS: ALBUTEROL/IPRATROPIUM 3MG-0.5MG/3ML (DUONEB) NEB VIAL INH SCH ×4 (08:23→23:00)
[2016-07-04] MEDS: ASCORBIC ACID 500 MG (VITAMIN C) TABLET PO SCH (08:43)
[2016-07-04] MEDS: FERROUS SULFATE 325 MG (IRON) TABLET PO SCH ×2 (08:43→17:25)
[2016-07-04] MEDS: guaiFENesin ER 600 MG (MUCINEX) TAB PO SCH ×2 (08:43→21:27)
[2016-07-04] MEDS: fluCOnazole (DIFLUCAN) 100 MG TAB PO SCH (08:43)
[2016-07-04] MEDS: predniSONE 20 MG (DELTASONE) TABLET PO SCH (08:43)
[2016-07-04] MEDS: ENOXAPARIN 40 MG/0.4 ML (LOVENOX) SYR SC SCH (08:44)
[2016-07-04] MEDS: POLYETHYLENE GLYCOL 17 GM (MIRALAX) PACKET PO SCH (08:44)
[2016-07-04] MEDS: SODIUM CHLORIDE FLUSH 3 ML SYR IV SCH (08:44)
[2016-07-04] MEDS: AZELASTINE NS SCH ×2 (08:44→21:00)
[2016-07-04 11:39] VITALS: BP 133/93
[2016-07-04] MEDS: SPIRONOLACTONE 25 MG (ALDACTONE) TABLET PO SCH (12:00)
[2016-07-04] MEDS: SODIUM CHLORIDE FLUSH 10 ML SYR IV PRN ×2 (13:46→21:27)
[2016-07-04 15:39] VITALS: BP 126/87
--- NOTE | 2016-07-04 18:01 | NUR ---
Patient sits up in recliner for all meals throughout dayshift. Rests in short intervals this afternoon. Currently on 4L of 02 per nc. Denies pain or distress. Pleasant and cooperative with all cares. Call light in reach.
[2016-07-04 19:47] VITALS: BP 137/97
--- NOTE | 2016-07-04 20:00 | NUR ---
Patient resting in recliner. Skin warm and dry. Color slightly ashen. Pleasant and cooperative with cares. Oxygen remains at 4 liters high flow per NC. NO SOA or discomforts voiced. PICC intact to left arm without complications to site. Call light within reach.
[2016-07-04] MEDS: ZOLPIDEM 5 MG (AMBIEN) TAB PO PRN (21:27)
[2016-07-05 00:27] VITALS: BP 142/95
[2016-07-05 04:58] VITALS: BP 143/90
[2016-07-05] MEDS: CEFEPIME 2,000 MG in SODIUM CHLORIDE 100 ML IV SCH ×3 (06:01→22:55)
[2016-07-05 06:05] LABS: MEAN CORPUSCULAR HEMOGLOBIN 29.3 PG (26.0-34.0); MEAN CORPUSCULAR HGB CONC 32.9 g/dL (31.0-37.0); MEAN CORPUSCULAR VOLUME 89 FL (80-100); MEAN PLATELET VOLUME 9.7 FL (6.0-9.5); PLATELET COUNT 431 10^3uL (150-450); WHITE BLOOD COUNT 18.24 10^3uL (4.0-11.0)
[2016-07-05] MEDS: PANTOPRAZOLE 40 MG (PROTONIX) TAB PO SCH (06:14)
--- NOTE | 2016-07-05 06:26 | NUR ---
Rested well tonight. Oxygen remains at 4 liters high flow. Placed up to 7 liters with minimal exertion. PICC patent. IV antibiotics administered as ordered. No discomforts voiced this morning. Color remains pale/ashen. Skin warm and dry. Call light within reach.
[2016-07-05 06:31] LABS: ALBUMIN 2.7 g/dL (3.4-5.0); ANION GAP 9.1 MEQ/L (3-15); CALCULATED IONIZED CALCIUM 4.8 mg/dL (3.8-4.6); TOTAL PROTEIN 5.3 g/dL (6.4-8.5)
[2016-07-05 06:46] LABS: ANISOCYTOSIS SLIGHT; BAND NEUTROPHILS % 4 % (0-6); EOSINOPHILS % 10 % (0-4); LYMPHOCYTES # 0.4 #; MONOCYTES # 3.4 #; MONOCYTES % 19 % (3-11); NUCLEATED RED BLOOD CELLS 1; RBC MORPH SEE REFERENCE (NORMAL); SEGMENTED NEUTROPHILS % 64 % (51-67); TOTAL CELLS COUNTED 100
[2016-07-05 07:40] VITALS: BP 125/84
[2016-07-05] MEDS: ALBUTEROL/IPRATROPIUM 3MG-0.5MG/3ML (DUONEB) NEB VIAL INH SCH ×4 (07:43→23:00)
[2016-07-05] MEDS: FLUTICASONE/SALMETEROL HFA 230/21 MCG (ADVAIR) COMMON CANNISTER INH SCH ×2 (07:46→20:27)
[2016-07-05] MEDS: guaiFENesin ER 600 MG (MUCINEX) TAB PO SCH ×2 (08:11→20:30)
[2016-07-05] MEDS: FERROUS SULFATE 325 MG (IRON) TABLET PO SCH ×2 (08:11→17:27)
[2016-07-05] MEDS: predniSONE 20 MG (DELTASONE) TABLET PO SCH (08:11)
[2016-07-05] MEDS: SODIUM CHLORIDE FLUSH 3 ML SYR IV SCH (08:12)
[2016-07-05] MEDS: ASCORBIC ACID 500 MG (VITAMIN C) TABLET PO SCH (08:12)
[2016-07-05] MEDS: fluCOnazole (DIFLUCAN) 100 MG TAB PO SCH (08:12)
[2016-07-05] MEDS: POLYETHYLENE GLYCOL 17 GM (MIRALAX) PACKET PO SCH (08:12)
[2016-07-05] MEDS: AZELASTINE NS SCH ×2 (08:12→20:30)
[2016-07-05] MEDS: ENOXAPARIN 40 MG/0.4 ML (LOVENOX) SYR SC SCH (08:13)
[2016-07-05] MEDS: VANCOMYCIN 1500 MG in NS IV 300 ML IV SCH ×6 (08:44→20:28)
[2016-07-05] MEDS: SPIRONOLACTONE 25 MG (ALDACTONE) TABLET PO SCH (11:57)
[2016-07-05 12:00] VITALS: BP 121/85
[2016-07-05] MEDS: SODIUM CHLORIDE FLUSH 10 ML SYR IV PRN ×3 (13:30→20:28)
[2016-07-05 15:38] VITALS: BP 116/85
--- NOTE | 2016-07-05 18:17 | NUR ---
Uneventful day shift. Patient sits up in recliner duration of day shift. Ambulates into bathroom on two occasions. Refused scheduled Miralax. Denies pain. 7L of 02 intact per nc. Respirations even and non-labored. Patient updated on plan to not wake in night for vital signs or breathing treatments. Call light in reach.
[2016-07-05 19:56] VITALS: BP 112/82
--- NOTE | 2016-07-05 20:00 | NUR ---
Resting in bed. Skin warm and dry. Color pale. PICC intact without complications to site. Oxygen at 4 liters per NC. Denies any discomforts. Has intermittent cough. No needs at this time. Call light within reach.
[2016-07-05] MEDS: ZOLPIDEM 5 MG (AMBIEN) TAB PO PRN (20:29)
[2016-07-06 04:00] VITALS: BP 139/90
[2016-07-06] MEDS: PANTOPRAZOLE 40 MG (PROTONIX) TAB PO SCH (05:53)
[2016-07-06] MEDS: CEFEPIME 2,000 MG in SODIUM CHLORIDE 100 ML IV SCH (05:53)
[2016-07-06 06:20] LABS: ALBUMIN 2.7 g/dL (3.4-5.0); ANION GAP 8.7 MEQ/L (3-15); CALCULATED IONIZED CALCIUM 4.7 mg/dL (3.8-4.6); MEAN CORPUSCULAR HEMOGLOBIN 29.7 PG (26.0-34.0); MEAN CORPUSCULAR HGB CONC 33.3 g/dL (31.0-37.0); MEAN CORPUSCULAR VOLUME 89 FL (80-100); MEAN PLATELET VOLUME 9.5 FL (6.0-9.5); PLATELET COUNT 443 10^3uL (150-450); TOTAL PROTEIN 5.2 g/dL (6.4-8.5)
--- NOTE | 2016-07-06 06:30 | NUR ---
Patient rested well tonight. HOB remains elevated 30 degrees. IV antibiotics administered as ordered. Oxygen turned up to 7 liters when up to the bathroom, or with any exertion. Returned to 4 liters NC when at rest. Denies pain or difficulty breathing. Voiding without difficulty. No concerns this morning. Will call for respiratory treatment when needed. call light within reach.
[2016-07-06 06:33] LABS: ANISOCYTOSIS SLIGHT; BAND NEUTROPHILS % 7 % (0-6); EOSINOPHILS % 0 % (0-4); LYMPHOCYTES # 2.3 #; MONOCYTES # 1.4 #; MONOCYTES % 8 % (3-11); RBC MORPH SEE REFERENCE (NORMAL); SEGMENTED NEUTROPHILS % 70 % (51-67); TOTAL CELLS COUNTED 100
--- NOTE | 2016-07-06 08:23 | NUR ---
Pt eating breakfast, asked to return when he is finished
[2016-07-06 08:26] VITALS: BP 117/80
[2016-07-06] MEDS: FLUTICASONE/SALMETEROL HFA 230/21 MCG (ADVAIR) COMMON CANNISTER INH SCH (08:49)
[2016-07-06] MEDS: ALBUTEROL/IPRATROPIUM 3MG-0.5MG/3ML (DUONEB) NEB VIAL INH SCH (08:49)
--- NOTE | 2016-07-06 08:53 | NUR ---
Pt found on 6 l/min HFNC while sitting in his chair, SPO2 94%, HR 105, RR 20 and mildly labored with a continuous non productive cough on every breath. BS coarse and diminished throughout all lung uriarte before and after Advair and Duoneb. IS x 2 x 1000, Pt is too tired to do any more.
[2016-07-06] MEDS: FERROUS SULFATE 325 MG (IRON) TABLET PO SCH (10:12)
[2016-07-06] MEDS: ASCORBIC ACID 500 MG (VITAMIN C) TABLET PO SCH (10:12)
[2016-07-06] MEDS: guaiFENesin ER 600 MG (MUCINEX) TAB PO SCH (10:12)
[2016-07-06] MEDS: fluCOnazole (DIFLUCAN) 100 MG TAB PO SCH (10:12)
[2016-07-06] MEDS: predniSONE 20 MG (DELTASONE) TABLET PO SCH (10:12)
[2016-07-06] MEDS: ENOXAPARIN 40 MG/0.4 ML (LOVENOX) SYR SC SCH (10:13)
[2016-07-06] MEDS: SODIUM CHLORIDE FLUSH 3 ML SYR IV SCH (10:15)
[2016-07-06] MEDS: ACETAMINOPHEN 325 MG TAB (TYLENOL) PO PRN (10:17)
[2016-07-06] MEDS: VANCOMYCIN 1500 MG in NS IV 300 ML IV SCH ×3 (10:18)
[2016-07-06] MEDS: POLYETHYLENE GLYCOL 17 GM (MIRALAX) PACKET PO SCH (10:22)
--- NOTE | 2016-07-06 10:30 | NUR ---
Patient transferred to Swing Bed status.
[2016-07-07] MEDS ORDERED: predniSONE 20 MG (DELTASONE) TABLET PO SCH (08:00)
[2016-07-10] MEDS ORDERED: predniSONE 20 MG (DELTASONE) TABLET PO SCH (08:00)
[2016-07-13] MEDS ORDERED: predniSONE 10 MG (DELTASONE) TABLET PO SCH (08:00)
== END 2016-07-06 10:30 | disposition swing bed (61) | DRG 871 ==
LOC: ED 17:38 → ICU 20:38 → MED/SURG 07-01 15:52
PROVIDERS: ADMIT Family Medicine; ATTEND Family Medicine
PROC: 05H633Z Insertion of Infusion Device into Left Subclavian Vein, Percutaneous Approach (ICD-10-PCS; principal; 2016-07-02)
DX: A41.9 Sepsis, unspecified organism (principal); J18.9 Pneumonia, unspecified organism; J96.20 Acute and chronic respiratory failure, unspecified whether with hypoxia or hypercapnia; J44.0 Chronic obstructive pulmonary disease with (acute) lower respiratory infection; J44.1 Chronic obstructive pulmonary disease with (acute) exacerbation; B37.81 Candidal esophagitis; E87.1 Hypo-osmolality and hyponatremia; D64.9 Anemia, unspecified; R65.20 Severe sepsis without septic shock; I48.91 Unspecified atrial fibrillation; J84.10 Pulmonary fibrosis, unspecified; I11.0 Hypertensive heart disease with heart failure; I50.9 Heart failure, unspecified; Z85.828 Personal history of other malignant neoplasm of skin; Z85.01 Personal history of malignant neoplasm of esophagus
CPT/HCPCS: 36415; 36569; 71010; 80053; 80202; 82550; 82553; 82803; 83605; 83880; 84443; 84484; 85007; 85025; 85027; 85610; 86140; 87040; 87486; 87581; 87633; 87798; 93005; 93010; 94640; 94669; 96361; 96365; 96375; 99284; 99291

== ENCOUNTER → 2016-06-29 | Outpatient (CLI) | payer MEDICARE, OTHER | LOC: EMS 17:35 | PROVIDERS: ATTEND Family Medicine | DX: R06.02 Shortness of breath (principal); R53.1 Weakness ==

== ENCOUNTER 2016-07-06 10:35 | Inpatient (IN) | payer MEDICARE, OTHER ==
[~2016-07-06] VITALS: Ht 177.8 cm; Wt 76.3 kg
[2016-07-06 10:30] VITALS: BP 117/80
--- NOTE | 2016-07-06 10:30 | NUR ---
Patient admitted to Swing Bed status.
--- NOTE | 2016-07-06 12:40 | NUR ---
Patient continues to have poor activity tolerance. He remains on 7 liters with minimal activity such as transferring from bed to chair and on 4 liters while in bed.
[2016-07-06] MEDS ORDERED: CEFEPIME 2,000 MG in SODIUM CHLORIDE 100 ML IV SCH (14:15)
[2016-07-06] MEDS ORDERED: COMPOUNDED BY PHARMACY IV SCH (14:15)
[2016-07-06] MEDS ORDERED: ZOLPIDEM 5 MG (AMBIEN) TAB PO PRN (14:15)
[2016-07-06] MEDS ORDERED: ACETAMINOPHEN 325 MG TAB (TYLENOL) PO PRN (14:15)
[2016-07-06] MEDS ORDERED: morphine INJ 2 MG/ML 1 ML SYRINGE IV PRN ×2 (14:15→14:30)
[2016-07-06] MEDS ORDERED: SODIUM CHLORIDE FLUSH 3 ML SYR IV PRN ×2 (14:15→14:30)
[2016-07-06] MEDS ORDERED: MAGNESIUM HYDROXIDE 80MG/ML (MILK OF MAGNESIA) 30 ML UDC PO PRN ×2 (14:15→14:30)
[2016-07-06] MEDS ORDERED: ALBUTEROL 0.083% NEB SOLUTION 2.5 MG/3 ML VIAL INH PRN ×2 (14:15→14:30)
[2016-07-06] MEDS ORDERED: DOCUSATE SODIUM 100 MG (COLACE) CAP PO PRN ×2 (14:15→14:30)
[2016-07-06] MEDS ORDERED: NS 100 ML (IVPB) BAG IV PRN (14:15)
[2016-07-06] MEDS ORDERED: VANCOMYCIN PHARMACY PROTOCOL IV SCH ×2 (14:15→14:30)
[2016-07-06] MEDS ORDERED: FUROSEMIDE 40 MG (LASIX) TAB PO PRN ×2 (14:15→14:30)
[2016-07-06] MEDS ORDERED: SODIUM CHLORIDE FLUSH 10 ML SYR IV PRN (14:15)
--- NOTE | 2016-07-06 14:48 | NUR ---
MULTIDISCIPLINARY MTG/DR. PAZ: Pt. admitted for recurrent SIRS/Sepsis, HCAP and COPD exacerbation. Dr. Paz had a meeting with Pt. and family to discuss Pt. disease process and prognosis. Family seems to have a better understanding of Pt. health issues now. Lidia with [facility] will be here this evening to discuss services with Pt. and family. Pt. remains on cefepime and vanco and will need 14 days of IV antibiotics. Plan to admit Pt. to swing bed today for IV antibiotics and PT/OT.
[2016-07-06] MEDS ORDERED: ALBUTEROL/IPRATROPIUM 3MG-0.5MG/3ML (DUONEB) NEB VIAL INH ONE (15:19)
[2016-07-06] MEDS: ALBUTEROL/IPRATROPIUM 3MG-0.5MG/3ML (DUONEB) NEB VIAL INH SCH ×2 (15:26→20:59)
--- NOTE | 2016-07-06 15:28 | NUR ---
Pt found sitting in his chair on 6 l/min HFNC, SPO2 96%, HR 95, RR 18 and mildly labored slightly coarse BS in all lung uriarte. Duoneb given via SVN tolerated well, BS unchanged post Tx. IS x 2 x 1000 ml, Acapella x2.
[2016-07-06 15:55] VITALS: BP 125/85
[2016-07-06] MEDS: CEFEPIME 2,000 MG in SODIUM CHLORIDE 100 ML IV SCH ×2 (16:11→23:09)
[2016-07-06] MEDS: SODIUM CHLORIDE FLUSH 10 ML SYR IV PRN ×2 (16:12→20:41)
[2016-07-06] MEDS ORDERED: ALBUTEROL/IPRATROPIUM 3MG-0.5MG/3ML (DUONEB) NEB VIAL INH SCH (17:00)
[2016-07-06] MEDS: ACETAMINOPHEN 325 MG TAB (TYLENOL) PO PRN (17:40)
[2016-07-06] MEDS ORDERED: FERROUS SULFATE 325 MG (IRON) TABLET PO SCH (18:00)
[2016-07-06] MEDS: FERROUS SULFATE 325 MG (IRON) TABLET PO SCH (18:30)
--- NOTE | 2016-07-06 18:31 | NUR ---
Vancomycin Dosing: Pharmacy managed S: Severe Sepsis secondary to HCAP. O: 70y/o M, wt = 78.1 kg, SCr = 0.58 mg/dL, CrCl > 100 ml/min, blood cx negative to date, WBC 17,900 with 70% neutrophils and 7% bands, vanco trough 18.1 mcg/mL. A/P: Continue vancomycin 1500mg q12h to maintain therapeutic goal of 15-20mcg/ml. Draw next trough prior to 07/09/16 AM dose (0830). Will monitor and adjust if needed.
--- NOTE | 2016-07-06 18:50 | NUR ---
Has rested in chair a good part of the afternoon. Family in late this evening for meeting with Lidia from [facility]. and step-daughter present and another daughter on speaker phone during meeting. Lidia provided family with a lot of information for patient and family regarding services and options for care. Plan to meet again next week.
--- NOTE | 2016-07-06 19:30 | NUR ---
Pt sitting in chair on 7L 02 per NC. Picc line without redness or edema. There is some dry blood under PICC dressing. No c/o at this time.
[2016-07-06] MEDS ORDERED: FLUTICASONE/SALMETEROL HFA 230/21 MCG (ADVAIR) COMMON CANNISTER INH ONE (19:55)
[2016-07-06 20:08] VITALS: BP 143/89
[2016-07-06] MEDS: guaiFENesin ER 600 MG (MUCINEX) TAB PO SCH (20:40)
[2016-07-06] MEDS: AZELASTINE NS SCH (20:41)
[2016-07-06] MEDS: ZOLPIDEM 5 MG (AMBIEN) TAB PO PRN (20:47)
[2016-07-06] MEDS: FLUTICASONE/SALMETEROL HFA 230/21 MCG (ADVAIR) COMMON CANNISTER INH SCH (20:59)
[2016-07-06] MEDS ORDERED: AZELASTINE NS SCH (21:00)
[2016-07-06] MEDS ORDERED: guaiFENesin ER 600 MG (MUCINEX) TAB PO SCH (21:00)
[2016-07-06] MEDS ORDERED: FLUTICASONE/SALMETEROL HFA 230/21 MCG (ADVAIR) COMMON CANNISTER INH SCH (21:00)
[2016-07-06] MEDS: VANCOMYCIN 1,500 MG, VANCOMYCIN PHARMACY PROTOCOL 1 EACH in SODIUM CHLORIDE 250 ML, SOD... IV SCH (21:53)
[2016-07-07] MEDS: PANTOPRAZOLE 40 MG (PROTONIX) TAB PO SCH (06:00)
[2016-07-07] MEDS: NS 100 ML (IVPB) BAG IV PRN (06:00)
[2016-07-07] MEDS: CEFEPIME 2,000 MG in SODIUM CHLORIDE 100 ML IV SCH ×3 (06:00→22:37)
[2016-07-07] MEDS: AZELASTINE NS SCH ×3 (06:00→21:00)
[2016-07-07] MEDS: SODIUM CHLORIDE FLUSH 10 ML SYR IV PRN ×3 (06:00→13:47)
[2016-07-07 06:01] VITALS: BP 154/87
--- NOTE | 2016-07-07 06:10 | NUR ---
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 Cont on 4L oxygen at rest and 7L oxygen with activities. LAC PICC patent and intact.
[2016-07-07] MEDS ORDERED: PANTOPRAZOLE 40 MG (PROTONIX) TAB PO SCH (07:00)
[2016-07-07 07:40] VITALS: BP 142/91
[2016-07-07] MEDS ORDERED: predniSONE 20 MG (DELTASONE) TABLET PO SCH (08:00)
[2016-07-07] MEDS: FLUTICASONE/SALMETEROL HFA 230/21 MCG (ADVAIR) COMMON CANNISTER INH SCH ×2 (08:36→20:55)
[2016-07-07] MEDS: ALBUTEROL/IPRATROPIUM 3MG-0.5MG/3ML (DUONEB) NEB VIAL INH SCH ×3 (08:36→20:54)
[2016-07-07] MEDS ORDERED: POLYETHYLENE GLYCOL 17 GM (MIRALAX) PACKET PO SCH (09:00)
[2016-07-07] MEDS: POLYETHYLENE GLYCOL 17 GM (MIRALAX) PACKET PO SCH (09:00)
[2016-07-07] MEDS ORDERED: ENOXAPARIN 40 MG/0.4 ML (LOVENOX) SYR SC SCH (09:00)
[2016-07-07] MEDS ORDERED: ASCORBIC ACID 500 MG (VITAMIN C) TABLET PO SCH (09:00)
[2016-07-07] MEDS: guaiFENesin ER 600 MG (MUCINEX) TAB PO SCH ×2 (09:25→20:18)
[2016-07-07] MEDS: ENOXAPARIN 40 MG/0.4 ML (LOVENOX) SYR SC SCH (09:25)
[2016-07-07] MEDS: FERROUS SULFATE 325 MG (IRON) TABLET PO SCH ×2 (09:25→18:19)
[2016-07-07] MEDS: ASCORBIC ACID 500 MG (VITAMIN C) TABLET PO SCH (09:26)
[2016-07-07] MEDS: ACETAMINOPHEN 325 MG TAB (TYLENOL) PO PRN (09:28)
[2016-07-07] MEDS: predniSONE 20 MG (DELTASONE) TABLET PO SCH (09:29)
[2016-07-07] MEDS: VANCOMYCIN 1,500 MG, VANCOMYCIN PHARMACY PROTOCOL 1 EACH in SODIUM CHLORIDE 250 ML, SOD... IV SCH ×2 (09:32→20:18)
--- NOTE | 2016-07-07 11:25 | NUR ---
Lidia with Hospice visited with Pt. and family last night regarding services [facility] can provide. Lidia reported to SW that the visit went well although no decision has been made. She did feel the family was leaning toward starting hospice services once Pt. is discharged from the hospital. Pt. reported to her he is tired of going to the hospital and he just wants to be at home. Lidia did talk to the family about Pt. needing a caregiver since his works. Lidia will obtain the paperwork from the [place] to have the family apply for an Aide and Attendant. will help Pt. with this paperwork if necessary. Lidia reported Pt. daughter is coming from [place] this weekend and plans to be here for a length of time. Lidia plans to meet with family again next week to discuss discharge plans further.
[2016-07-07] MEDS ORDERED: SPIRONOLACTONE 25 MG (ALDACTONE) TABLET PO SCH (12:00)
[2016-07-07] MEDS: SPIRONOLACTONE 25 MG (ALDACTONE) TABLET PO SCH (13:47)
[2016-07-07 15:49] VITALS: BP 124/81
--- NOTE | 2016-07-07 17:24 | NUR ---
Pt. on 7L hfnc most of the day. BS are diminished, crackles, loose cough, white sputum.
--- NOTE | 2016-07-07 19:24 | NUR ---
Patient is unchanged from yesterday. He continues to have significant shortness of air with activity. Therapy has attempted to schedule activities around his breathing treatments and away from other cares.
--- NOTE | 2016-07-07 20:20 | NUR ---
Caro refused this evening; pt. states, "I only take it when I need it--it really works good whenever I do take it. I am ok right now". Pt. resting in recliner; pillow under arms and legs for comfort; O2 currently at 4L via NC HF. Call light and H2O within reach. Addendum: 07/07/16 at 2310 by Donna Gomes RN Correction: O2 at 7L.
--- NOTE | 2016-07-07 20:25 | NUR ---
Lindao infusing without difficulty at left forearm PICC line; pt. denies discomfort; pleasant and conversational.
--- NOTE | 2016-07-07 20:56 | NUR ---
Pt found in his recliner on 7 l/min HFNC, SPO2 98%, HR 92, RR 22 and slightly labored with a weak loose NPC. BS have fine rhonchi in upper lobes and lower left lobe before and after Tx. IS and acapella continued on his own.
[2016-07-07] MEDS: ZOLPIDEM 5 MG (AMBIEN) TAB PO PRN (21:12)
--- NOTE | 2016-07-07 21:15 | NUR ---
Ambien given at this time per pt. request; "I take it every night". Pt. conversational and pleasant.
[2016-07-08] MEDS: CEFEPIME 2,000 MG in SODIUM CHLORIDE 100 ML IV SCH ×3 (05:48→22:27)
--- NOTE | 2016-07-08 05:50 | NUR ---
Antibiotic infusing without difficulty at left PICC line; pt. resting in recliner; legs elevated; O2 at 7L with activity. Pt. experiences shortness of breath with any activity; productive cough present. Pt. denies discomfort. Pt. conversational and pleasant; call light and H2O within reach.
[2016-07-08] MEDS: PANTOPRAZOLE 40 MG (PROTONIX) TAB PO SCH (06:17)
[2016-07-08 07:35] VITALS: BP 139/95
[2016-07-08] MEDS: ALBUTEROL/IPRATROPIUM 3MG-0.5MG/3ML (DUONEB) NEB VIAL INH SCH ×4 (07:48→19:52)
[2016-07-08] MEDS: FLUTICASONE/SALMETEROL HFA 230/21 MCG (ADVAIR) COMMON CANNISTER INH SCH ×2 (07:49→19:52)
[2016-07-08] MEDS ORDERED: WATER, FOR IRRIGATION 1000 ML POUR BOTTLE ONE (07:53)
[2016-07-08] MEDS: predniSONE 20 MG (DELTASONE) TABLET PO SCH (08:05)
[2016-07-08] MEDS: FERROUS SULFATE 325 MG (IRON) TABLET PO SCH ×2 (08:06→17:38)
[2016-07-08] MEDS: SODIUM CHLORIDE FLUSH 10 ML SYR IV PRN ×2 (08:07→14:07)
[2016-07-08 08:11] LABS: MEAN CORPUSCULAR HEMOGLOBIN 28.9 PG (26.0-34.0); MEAN CORPUSCULAR HGB CONC 32.3 g/dL (31.0-37.0); MEAN CORPUSCULAR VOLUME 90 FL (80-100); MEAN PLATELET VOLUME 9.2 FL (6.0-9.5); PLATELET COUNT 414 10^3uL (150-450); WHITE BLOOD COUNT 16.44 10^3uL (4.0-11.0)
[2016-07-08 08:32] LABS: ALBUMIN 2.8 g/dL (3.4-5.0); ANION GAP 8.5 MEQ/L (3-15); PHOSPHORUS 2.9 mg/dL (2.4-4.9)
[2016-07-08] MEDS: AZELASTINE NS SCH ×2 (09:00→20:51)
[2016-07-08] MEDS: POLYETHYLENE GLYCOL 17 GM (MIRALAX) PACKET PO SCH (09:00)
[2016-07-08 09:17] LABS: BAND NEUTROPHILS % 0 % (0-6); EOSINOPHILS % 1 % (0-4); MONOCYTES % 6 % (3-11); SEGMENTED NEUTROPHILS % 80 % (51-67); TOTAL CELLS COUNTED 100
[2016-07-08 09:18] LABS: RBC MORPH NORMAL (NORMAL)
[2016-07-08] MEDS: ASCORBIC ACID 500 MG (VITAMIN C) TABLET PO SCH (09:36)
[2016-07-08] MEDS: guaiFENesin ER 600 MG (MUCINEX) TAB PO SCH ×2 (09:36→20:41)
[2016-07-08] MEDS: ENOXAPARIN 40 MG/0.4 ML (LOVENOX) SYR SC SCH (09:36)
[2016-07-08] MEDS: VANCOMYCIN 1,500 MG, VANCOMYCIN PHARMACY PROTOCOL 1 EACH in SODIUM CHLORIDE 250 ML, SOD... IV SCH ×2 (09:37→20:41)
[2016-07-08] MEDS: NS 100 ML (IVPB) BAG IV PRN (09:39)
[2016-07-08] MEDS: SPIRONOLACTONE 25 MG (ALDACTONE) TABLET PO SCH (12:21)
[2016-07-08 16:14] VITALS: BP 122/77
--- NOTE | 2016-07-08 18:19 | NUR ---
Patient sits up in recliner throughout day shift. Participates well with therapy. Reports feeling less SOA today. In good spirits. Denies pain or distress. Call light in reach.
--- NOTE | 2016-07-08 19:59 | NUR ---
Pt found sitting in his chair, Spo2 96%, HR 99, RR 18 and non labored at this time. BS clear before and after Duoneb and Advair. Acapella and IS continue on his own, Pt has anxiety about weaning 02 any further fearing his "oxygen will drop when I sleep". O2 not titrated at this time.
[2016-07-08 20:04] VITALS: BP 132/88
--- NOTE | 2016-07-08 20:45 | NUR ---
Candido infusing without difficulty at left forearm PICC line site; pt. resting in recliner; visiting with family and watching tv; denies discomfort; is conversational and pleasant. O2 at 6L via NC/HF. Pt. becomes short of air with extended conversation. Call light and H2O within reach.
[2016-07-08] MEDS: ZOLPIDEM 5 MG (AMBIEN) TAB PO PRN (21:13)
--- NOTE | 2016-07-08 21:15 | NUR ---
Elinorien given at this time per pt. request; "It takes a little bit to get working". Pt. ready to move from recliner to bed.
[2016-07-08] MEDS ORDERED: NS 100 ML (IVPB) BAG IV ONE (22:35)
--- NOTE | 2016-07-09 01:10 | NUR ---
Pt. resting quietly; O2 at 4L via NC HF; pt. appears to be in no distress. Call light and H2O within reach.
[2016-07-09 05:14] VITALS: BP 136/86
[2016-07-09] MEDS: CEFEPIME 2,000 MG in SODIUM CHLORIDE 100 ML IV SCH ×3 (05:31→22:33)
--- NOTE | 2016-07-09 05:35 | NUR ---
Antibiotic infusing currently without difficulty at left arm PICC site; pt. states, "I woke up early today-4 a.m.". Pt. denies discomfort; O2 currently at 4L via NC HF. Pt. has frequently been requesting staff to turn his oxygen up or down at whim; example, 4L when in bed; 6L or higher when awake or with activity. Pt. becomes anxious when this nurse mentions the O2 does not need to be turned up and down so often in his situation. Pt. expresses desire to have oxygen higher when he is awake, despite his current SATS. Reassurance given. Will continue to monitor.
[2016-07-09] MEDS: PANTOPRAZOLE 40 MG (PROTONIX) TAB PO SCH (06:27)
[2016-07-09] MEDS: ALBUTEROL/IPRATROPIUM 3MG-0.5MG/3ML (DUONEB) NEB VIAL INH SCH ×3 (07:34→20:46)
[2016-07-09 07:35] VITALS: BP 134/84
[2016-07-09] MEDS: FLUTICASONE/SALMETEROL HFA 230/21 MCG (ADVAIR) COMMON CANNISTER INH SCH ×2 (07:35→20:46)
--- NOTE | 2016-07-09 08:14 | NUR ---
Nutrition Follow Up: Patient is participating in rehab for skilled care. He has a good appetite, eating mostly 100% at meals (cardiac diet.) He continues to be short of air frequently, including with long conversations and rehab. Noted pt. and family met with Hospice to discuss possible services after DC; no plans have been officially made yet. Weight today: 170#/77.3 kg--this is maintained from initial assessment (up 1# in the past 9 days) Labs: N/A 1. Continue cardiac diet as ordered, and supplement with chocolate Ensure as previously ordered.
[2016-07-09] MEDS: SODIUM CHLORIDE FLUSH 10 ML SYR IV PRN ×3 (08:53→20:16)
[2016-07-09] MEDS: FERROUS SULFATE 325 MG (IRON) TABLET PO SCH ×2 (08:54→17:37)
[2016-07-09] MEDS: predniSONE 20 MG (DELTASONE) TABLET PO SCH (08:54)
[2016-07-09] MEDS: ASCORBIC ACID 500 MG (VITAMIN C) TABLET PO SCH (08:54)
[2016-07-09] MEDS: guaiFENesin ER 600 MG (MUCINEX) TAB PO SCH ×2 (08:54→20:16)
[2016-07-09] MEDS: ENOXAPARIN 40 MG/0.4 ML (LOVENOX) SYR SC SCH (08:55)
[2016-07-09] MEDS: POLYETHYLENE GLYCOL 17 GM (MIRALAX) PACKET PO SCH (08:59)
[2016-07-09] MEDS: AZELASTINE NS SCH ×2 (10:00→20:17)
--- NOTE | 2016-07-09 10:20 | NUR ---
Visited with Pt. ; she did receive the Aide and Attendant paperwork and completed part of it. She has given the paperwork to Dwight to complete the rest. SW offered to help if they had any questions. She reported they would like to elect hospice through [facility] when Pt. is discharged. Pt. daughter will arrive from [place] this weekend. The family plans to have another meeting with Lidia next week to start preparing for Pt. discharge.
[2016-07-09] MEDS: VANCOMYCIN 1,500 MG, VANCOMYCIN PHARMACY PROTOCOL 1 EACH in SODIUM CHLORIDE 250 ML, SOD... IV SCH ×2 (10:40→20:16)
[2016-07-09] MEDS: ACETAMINOPHEN 325 MG TAB (TYLENOL) PO PRN (10:40)
[2016-07-09 11:56] VITALS: BP 123/92
[2016-07-09] MEDS: SPIRONOLACTONE 25 MG (ALDACTONE) TABLET PO SCH (12:43)
[2016-07-09] MEDS: NS 100 ML (IVPB) BAG IV PRN (13:13)
--- NOTE | 2016-07-09 14:33 | NUR ---
MULTIDISCIPLINARY MTG/DR. TAO: Pt. admitted to swing bed 07/06. Pt. HCAP is resolving and he will have completed his 14 day course of antibiotics on 07/13. Pt. PICC line is working well. Pt. has been very anxious about his oxygen requirements. Will add Xanax for Pt. to use. SW visited with Pt. who reported Pt. daughter will be here Wednesday and they plans to take Pt. home on hospice. Hospice plans to meet with family next Wednesday to prepare for discharge.
--- NOTE | 2016-07-09 19:00 | NUR ---
Patient's condition remains unchanged. Blood draw from left PICC line was adequate for Vanco trough this morning. Both lumens flush well.
[2016-07-09 20:00] VITALS: BP 125/80
[2016-07-09] MEDS: ZOLPIDEM 5 MG (AMBIEN) TAB PO PRN (20:21)
--- NOTE | 2016-07-09 20:50 | NUR ---
Pt found reclining in his chair on 4 l/min HFNC, SPO2 94%, HR 99, RR 20 and mildly labored with fine crackles throughout all lung uriarte before and after Duoned via SVN and 2p Advair 230/21 via Spacer. Tx tolerated well and there was no change in BS post Tx. Pt continues IS and Acapella on his own.
[2016-07-10] MEDS: PANTOPRAZOLE 40 MG (PROTONIX) TAB PO SCH (05:44)
[2016-07-10] MEDS: CEFEPIME 2,000 MG in SODIUM CHLORIDE 100 ML IV SCH ×3 (05:44→22:23)
--- NOTE | 2016-07-10 06:25 | NUR ---
Pt rests in short intervals. Complains of not being able to sleep well despite PRN ambien administration. Denies pain. Antibiotics infuse w/o difficulty. PICC intact. No needs at this time.
[2016-07-10 07:46] VITALS: BP 138/86
[2016-07-10] MEDS ORDERED: predniSONE 20 MG (DELTASONE) TABLET PO SCH (08:00)
[2016-07-10] MEDS: guaiFENesin ER 600 MG (MUCINEX) TAB PO SCH ×2 (08:50→20:13)
[2016-07-10] MEDS: FERROUS SULFATE 325 MG (IRON) TABLET PO SCH ×2 (08:50→18:44)
[2016-07-10] MEDS: ASCORBIC ACID 500 MG (VITAMIN C) TABLET PO SCH (08:50)
[2016-07-10] MEDS: ENOXAPARIN 40 MG/0.4 ML (LOVENOX) SYR SC SCH (08:51)
[2016-07-10] MEDS: predniSONE 20 MG (DELTASONE) TABLET PO SCH (08:51)
[2016-07-10] MEDS: AZELASTINE NS SCH ×2 (08:51→20:17)
[2016-07-10] MEDS: VANCOMYCIN 1,500 MG, VANCOMYCIN PHARMACY PROTOCOL 1 EACH in SODIUM CHLORIDE 250 ML, SOD... IV SCH ×2 (08:52→20:13)
[2016-07-10] MEDS: SODIUM CHLORIDE FLUSH 10 ML SYR IV PRN ×3 (08:52→20:13)
[2016-07-10] MEDS: POLYETHYLENE GLYCOL 17 GM (MIRALAX) PACKET PO SCH (08:53)
[2016-07-10] MEDS: ALBUTEROL/IPRATROPIUM 3MG-0.5MG/3ML (DUONEB) NEB VIAL INH SCH ×5 (08:59→20:38)
[2016-07-10] MEDS: FLUTICASONE/SALMETEROL HFA 230/21 MCG (ADVAIR) COMMON CANNISTER INH SCH ×2 (09:00→20:35)
[2016-07-10] MEDS ORDERED: INFLUENZA VIRUS VACCINE 60MCG/0.5 ML (FLUZONE QUAD) VIAL IM ONE (14:15)
[2016-07-10] MEDS: ACETAMINOPHEN 325 MG TAB (TYLENOL) PO PRN (14:49)
[2016-07-10] MEDS: SPIRONOLACTONE 25 MG (ALDACTONE) TABLET PO SCH (14:49)
[2016-07-10] MEDS: NS 100 ML (IVPB) BAG IV PRN (14:53)
--- NOTE | 2016-07-10 15:11 | NUR ---
PT is awake and alert, sitting in recliner, with legs reclined. Tolerated tx well. Pt has strong NPC, found on 6L due to pt return from restroom, titrated back down to 4L, RN notified.
--- NOTE | 2016-07-10 19:30 | NUR ---
Patient continues to have poor activity tolerance. He was able to walk about 50 feet with PT this afternoon. Attempted to give care in intervals due to poor reserve.
[2016-07-10 19:48] VITALS: BP 127/74
[2016-07-10] MEDS: ZOLPIDEM 5 MG (AMBIEN) TAB PO PRN (22:09)
--- NOTE | 2016-07-10 22:12 | NUR ---
Pt c/o "pulling" feeling in chest. Apical and radial pulses taken, both even and regular. Vital signs as follows: T 97.8, HR 102, RR 20, BP 139/89. Pt denies other discomforts. "Maybe I just moved wrong." Cont on 4L oxygen per hi-flow nc. Will continue to monitor.
[2016-07-11] MEDS: PANTOPRAZOLE 40 MG (PROTONIX) TAB PO SCH (05:54)
[2016-07-11] MEDS: CEFEPIME 2,000 MG in SODIUM CHLORIDE 100 ML IV SCH ×3 (05:54→22:51)
[2016-07-11] MEDS: ACETAMINOPHEN 325 MG TAB (TYLENOL) PO PRN ×3 (05:57→18:26)
--- NOTE | 2016-07-11 06:15 | NUR ---
Uneventful ccnp. Pt denies further c/o chest "pulling", but does state that his back hurts a bit. PRN tylenol provided. Pt states he slept better in the chair. PICC patent and intact.
[2016-07-11] MEDS: AZELASTINE NS SCH ×2 (08:20→20:27)
[2016-07-11] MEDS: ENOXAPARIN 40 MG/0.4 ML (LOVENOX) SYR SC SCH (08:21)
[2016-07-11] MEDS: guaiFENesin ER 600 MG (MUCINEX) TAB PO SCH ×2 (08:22→20:25)
[2016-07-11] MEDS: POLYETHYLENE GLYCOL 17 GM (MIRALAX) PACKET PO SCH (08:22)
[2016-07-11] MEDS: predniSONE 20 MG (DELTASONE) TABLET PO SCH (08:22)
[2016-07-11] MEDS: FERROUS SULFATE 325 MG (IRON) TABLET PO SCH ×2 (08:22→17:35)
[2016-07-11] MEDS: ASCORBIC ACID 500 MG (VITAMIN C) TABLET PO SCH (08:22)
[2016-07-11] MEDS: VANCOMYCIN 1,500 MG, VANCOMYCIN PHARMACY PROTOCOL 1 EACH in SODIUM CHLORIDE 250 ML, SOD... IV SCH ×2 (08:25→20:26)
[2016-07-11] MEDS: SODIUM CHLORIDE FLUSH 10 ML SYR IV PRN ×5 (08:25→23:40)
--- NOTE | 2016-07-11 08:25 | NUR ---
Pt sitting upright in chair, watching tv and eating bfst. Remains on 4L nc. Takes AM meds without difficulty. PICC line intact to LAC- white port flushes without difficulty- Vanco infusing now as ordered. German RT enters room now. call light within reach. Refused scheduled AM dose of Miralax- states he is having multiple stools a day.
[2016-07-11 08:50] VITALS: BP 126/95
[2016-07-11] MEDS: FLUTICASONE/SALMETEROL HFA 230/21 MCG (ADVAIR) COMMON CANNISTER INH SCH ×2 (08:50→20:39)
[2016-07-11] MEDS: ALBUTEROL/IPRATROPIUM 3MG-0.5MG/3ML (DUONEB) NEB VIAL INH SCH ×4 (08:50→23:00)
--- NOTE | 2016-07-11 08:54 | NUR ---
Pt found sitting in his chair on 4 l/min HFNC, SPO2 94%, HR 107, RR 20 and mildly labored. Pt c/o pain in his thorax "like I pulled something" but no increased SOA or dyspnea. BS clear and diminished before and after Duoneb via SVN and 2p Advair 230/21 via Spacer.
--- NOTE | 2016-07-11 09:59 | NUR ---
Pt asks for Tylenol for left sided chest/back musculoskeletal pain- states he pulled a muscle overnight while reaching for something. Tylenol was given at 0600 and is unavailable at this time- Tramadol 50mg PO given for 5/10 pain at that site. Warm blanket also provided as intervention. will cont to monitor.
[2016-07-11] MEDS: SPIRONOLACTONE 25 MG (ALDACTONE) TABLET PO SCH (11:44)
[2016-07-11] MEDS: NS 100 ML (IVPB) BAG IV PRN (13:28)
--- NOTE | 2016-07-11 14:09 | NUR ---
Pt found reclining in his chair on 4 l/min HFNC, SPO2 95%, HR 107, RR 16 and non labored at this time. BS clear before and after Duoneb via SVN/mask tolerated well.
[2016-07-11] MEDS ORDERED: ALBUTEROL 0.5% NEB SOLUTION 2.5 MG/0.5 ML VIAL INH SCH (16:35)
[2016-07-11] MEDS ORDERED: SODIUM CHLORIDE 7% NEB SOLN 4 ML VIAL IH SCH (16:35)
--- NOTE | 2016-07-11 17:43 | NUR ---
Pt sitting upright in chair, watching tv, eating supper meal. Supper meds taken without difficulty. PICC line intact- HL. Call light within reach.
[2016-07-11 19:54] VITALS: BP 139/87
[2016-07-11] MEDS: LORazepam 1 MG (ATIVAN) TABLET PO PRN (20:36)
--- NOTE | 2016-07-11 20:44 | NUR ---
Pt sitting in recliner at bedside, alert & oriented, speech clear. Lungs diminished, oxygen at 4L/NC, pt denies dyspnea at present. Abdomen soft, non-tender. Pt requests to sleep in blake tonight due to pain in chest area and breathing. Educated pt on importance of shifting weight to prevent sore on bottom, verbalizes understanding. PM meds given without difficulty. Call light in reach. Will round frequently for cares.
[2016-07-11 23:58] VITALS: BP 139/88
--- NOTE | 2016-07-11 23:59 | NUR ---
Pt complains of pain in chest, requests Tramadol, will give accordingly. Also states increased dyspnea r/t activity of standing to urinate, requests vitals taken, see flowsheet.
[2016-07-12] MEDS: ACETAMINOPHEN 325 MG TAB (TYLENOL) PO PRN ×2 (05:42→13:33)
--- NOTE | 2016-07-12 05:43 | NUR ---
Has pain in chest which he says is from a pulled muscle the other day. Tylenol given. Addendum: 07/12/16 at 0545 by Maria Del Rosario Green RN States pain feels like gas.
--- NOTE | 2016-07-12 06:01 | NUR ---
Up to use bathroom and had good BM. Reports pain is much lessoned.
[2016-07-12] MEDS: CEFEPIME 2,000 MG in SODIUM CHLORIDE 100 ML IV SCH ×3 (06:04→20:32)
[2016-07-12] MEDS: SODIUM CHLORIDE FLUSH 10 ML SYR IV PRN ×4 (06:04→20:32)
[2016-07-12] MEDS: PANTOPRAZOLE 40 MG (PROTONIX) TAB PO SCH (06:43)
[2016-07-12 07:24] VITALS: BP 126/82
--- NOTE | 2016-07-12 07:29 | NUR ---
Pt sitting in chair- states he slept all night in chair. Remains on 4L nc O2 with rest, but requests O2 increase to 6L nc with activity. VSS. Left PICC in place, secured with Coban- Cefepime finished infusing- white port HL at this time. Will flush pink port this AM. Pt states pain to left chest/back is much improved since last night- alternating Tylenol and Tramadol prn. Calls for assist appropriately. Call light within reach.
[2016-07-12] MEDS: ALBUTEROL/IPRATROPIUM 3MG-0.5MG/3ML (DUONEB) NEB VIAL INH SCH ×3 (07:33→19:54)
[2016-07-12] MEDS: FLUTICASONE/SALMETEROL HFA 230/21 MCG (ADVAIR) COMMON CANNISTER INH SCH ×2 (07:34→19:54)
--- NOTE | 2016-07-12 07:40 | NUR ---
Reports resting well last night. Woke up about 0530 and had chest discomfort for which tylenol given. Patient was assisted to bathroom where he had a regular BM and reports feeling much better. Reports some "belching" as well and pain is lessening.
[2016-07-12] MEDS: AZELASTINE NS SCH ×2 (09:00→20:32)
[2016-07-12] MEDS: POLYETHYLENE GLYCOL 17 GM (MIRALAX) PACKET PO SCH (09:00)
[2016-07-12] MEDS: ASCORBIC ACID 500 MG (VITAMIN C) TABLET PO SCH (09:01)
[2016-07-12] MEDS: predniSONE 20 MG (DELTASONE) TABLET PO SCH (09:01)
[2016-07-12] MEDS: ENOXAPARIN 40 MG/0.4 ML (LOVENOX) SYR SC SCH (09:01)
[2016-07-12] MEDS: FERROUS SULFATE 325 MG (IRON) TABLET PO SCH ×2 (09:01→17:04)
[2016-07-12] MEDS: guaiFENesin ER 600 MG (MUCINEX) TAB PO SCH ×2 (09:01→20:32)
[2016-07-12] MEDS: VANCOMYCIN 1,500 MG, VANCOMYCIN PHARMACY PROTOCOL 1 EACH in SODIUM CHLORIDE 250 ML, SOD... IV SCH ×2 (09:02→21:24)
--- NOTE | 2016-07-12 09:22 | NUR ---
Vanco infusing as ordered into PICC. Pt refused Miralax and Astelin nasal spray this AM. Tramadol given as ordered to "stay ahead" of left sided torso pain. Will cont to monitor patient.
[2016-07-12] MEDS: SPIRONOLACTONE 25 MG (ALDACTONE) TABLET PO SCH (11:24)
[2016-07-12] MEDS: NS 100 ML (IVPB) BAG IV PRN (13:27)
--- NOTE | 2016-07-12 15:55 | NUR ---
Pt daughter from [place] is here visiting. Pt has had scheduled antibiotics throughout shift. Tylenol 650mg PO given at 1330.
--- NOTE | 2016-07-12 17:05 | NUR ---
Pt requests pain meds- Tramadol 50mg PO given as ordered.
--- NOTE | 2016-07-12 18:23 | NUR ---
Pt reports to nurse that he feels like he "has an eye cold" in his left eye- on assessment, noted deep red color in sclera of left eye. Dr. Paz notified- no new orders, he will assess. BP 146/82
--- NOTE | 2016-07-12 19:58 | NUR ---
Pt found reclining in his chair on 4 l/min NC, SPO2 94%, HR 104, RR 18 and non labored at this time with crackles heard throughout all lung fielad before and after Duoneb via SVN and 2p Advair 230/21 via Spacer. BS unchanged post Tx.
[2016-07-12 20:13] VITALS: BP 137/85
--- NOTE | 2016-07-12 20:43 | NUR ---
Pt sitting in recliner, family at bedside. Pt alert & oriented, speech clear. Lungs diminished, oxygen at 4L/NC, no cough at present. PICC line to left arm patent, IV abx began. Call light in reach. Will round frequently for cares.
[2016-07-12] MEDS: LORazepam 1 MG (ATIVAN) TABLET PO PRN (21:24)
--- NOTE | 2016-07-12 22:03 | NUR ---
Pt resting quietly in chair, even unlabored respirations.
[2016-07-13] MEDS: ACETAMINOPHEN 325 MG TAB (TYLENOL) PO PRN ×3 (01:53→20:56)
--- NOTE | 2016-07-13 01:54 | NUR ---
Patient having difficulty falling back to sleep. Requests tylenol for chest discomfort rating 4/10.
[2016-07-13] MEDS: SODIUM CHLORIDE FLUSH 10 ML SYR IV PRN ×3 (05:44→10:06)
[2016-07-13] MEDS: CEFEPIME 2,000 MG in SODIUM CHLORIDE 100 ML IV SCH (05:49)
--- NOTE | 2016-07-13 06:05 | NUR ---
Patient c/o intermittent chest wall pain described as an ache which comes in spasms. Requested pain medicine and tramadol given. Patient has been awake all morning up in recliner unable to fall back to sleep. No further complaints from patient. Has used the urinal several times through night.
[2016-07-13 06:22] LABS: BASOPHILS % (AUTO) 0 % (0-2); EOSINOPHILS # (AUTO) 0.2 10^3uL; EOSINOPHILS % (AUTO) 1 % (0-4); LYMPHOCYTES # (AUTO) 2.3 X10^3; MEAN CORPUSCULAR HEMOGLOBIN 29.6 PG (26.0-34.0); MEAN CORPUSCULAR HGB CONC 32.5 g/dL (31.0-37.0); MEAN CORPUSCULAR VOLUME 91 FL (80-100); MEAN PLATELET VOLUME 9.6 FL (6.0-9.5); MONOCYTES % (AUTO) 10 % (3-11); NEUTROPHILS # (AUTO) 14.9 X10^3; NEUTROPHILS % (AUTO) 77 % (51-67); PLATELET COUNT 376 10^3uL (150-450); WHITE BLOOD COUNT 19.49 10^3uL (4.0-11.0)
[2016-07-13 06:47] LABS: ALBUMIN 3.3 g/dL (3.4-5.0); ANION GAP 11.6 MEQ/L (3-15); PHOSPHORUS 3.2 mg/dL (2.4-4.9)
[2016-07-13] MEDS: ALBUTEROL/IPRATROPIUM 3MG-0.5MG/3ML (DUONEB) NEB VIAL INH SCH ×3 (07:24→19:32)
[2016-07-13] MEDS: FLUTICASONE/SALMETEROL HFA 230/21 MCG (ADVAIR) COMMON CANNISTER INH SCH ×2 (07:24→19:32)
[2016-07-13] MEDS: PANTOPRAZOLE 40 MG (PROTONIX) TAB PO SCH (07:36)
[2016-07-13] MEDS: predniSONE 10 MG (DELTASONE) TABLET PO SCH ×2 (07:37→10:05)
[2016-07-13 07:43] VITALS: BP 143/90
[2016-07-13] MEDS ORDERED: predniSONE 10 MG (DELTASONE) TABLET PO SCH (08:00)
[2016-07-13] MEDS: ASCORBIC ACID 500 MG (VITAMIN C) TABLET PO SCH (10:05)
[2016-07-13] MEDS: guaiFENesin ER 600 MG (MUCINEX) TAB PO SCH ×2 (10:05→20:54)
[2016-07-13] MEDS: FERROUS SULFATE 325 MG (IRON) TABLET PO SCH ×2 (10:05→17:41)
[2016-07-13] MEDS: ENOXAPARIN 40 MG/0.4 ML (LOVENOX) SYR SC SCH (10:06)
[2016-07-13] MEDS: VANCOMYCIN 1,500 MG, VANCOMYCIN PHARMACY PROTOCOL 1 EACH in SODIUM CHLORIDE 250 ML, SOD... IV SCH (10:06)
[2016-07-13] MEDS: POLYETHYLENE GLYCOL 17 GM (MIRALAX) PACKET PO SCH (10:16)
[2016-07-13] MEDS: AZELASTINE NS SCH ×2 (10:17→21:00)
[2016-07-13] MEDS: SPIRONOLACTONE 25 MG (ALDACTONE) TABLET PO SCH (12:55)
--- NOTE | 2016-07-13 13:42 | NUR ---
SpO2 96% on Room air. BS Clear but decreased at bases bilat.
--- NOTE | 2016-07-13 18:16 | NUR ---
At times the patient appeared nervous about the potential discharge coming up this week but having his daughter at the bedside seemed to help with this. I gave him frequent reassurance that it was okay to be off IV antibiotics as well and that nursing, pharmacy, and the doctor have coordinated to make sure he had a full course of antibiotics.
--- NOTE | 2016-07-13 19:38 | NUR ---
Pt found reclining in his chair on 6 l/min HFNC, SPO2 96%, HR 99, RR 18 and mildly labored. BS clear and diminished before and after Duoneb and Advair.
[2016-07-13 19:58] VITALS: BP 136/89
--- NOTE | 2016-07-13 20:00 | NUR ---
Sitting in chair. Visiting with daughter from out of state. In good spirits tonight. Oxygen on at 4 liters per nasal cannula. No discomforts voiced at this time. Continues to have coarse lung sounds throughout. Occasional non-productive ough. No concerns at this time. Wants to sleep in recliner chair tonight. Call light within reach.
--- NOTE | 2016-07-13 20:56 | NUR ---
Tylenol 650mg administered for generalized discomfort. States he does not want his sleeping pill tonight. PICC line intact without complications to site. Oxygen remains on.
[2016-07-14] MEDS: LORazepam 1 MG (ATIVAN) TABLET PO PRN ×2 (00:21→22:05)
--- NOTE | 2016-07-14 00:21 | NUR ---
Ativan 1mg administered per request for sleep. Does not wish to have sleeping pill. Feels that the Ativan helps him relax more. Cooperative with cares. Uses call light.
[2016-07-14] MEDS: PANTOPRAZOLE 40 MG (PROTONIX) TAB PO SCH (06:00)
[2016-07-14] MEDS: ACETAMINOPHEN 325 MG TAB (TYLENOL) PO PRN ×3 (06:09→20:16)
--- NOTE | 2016-07-14 06:35 | NUR ---
Rested well tonight. Patient had Ativan around midnight and slept the rest of the night. Respirations non-labored. Oxygen remains at4 lpm per NC. Is alert and oriented this morning. Drinking coffee. No discomforts voiced.
[2016-07-14] MEDS: FLUTICASONE/SALMETEROL HFA 230/21 MCG (ADVAIR) COMMON CANNISTER INH SCH ×2 (07:46→20:04)
[2016-07-14] MEDS: ALBUTEROL/IPRATROPIUM 3MG-0.5MG/3ML (DUONEB) NEB VIAL INH SCH ×4 (07:46→20:04)
[2016-07-14 08:23] VITALS: BP 133/85
[2016-07-14] MEDS: AZELASTINE NS SCH ×2 (09:00→21:00)
[2016-07-14] MEDS: POLYETHYLENE GLYCOL 17 GM (MIRALAX) PACKET PO SCH (09:00)
[2016-07-14] MEDS: predniSONE 10 MG (DELTASONE) TABLET PO SCH (09:49)
[2016-07-14] MEDS: guaiFENesin ER 600 MG (MUCINEX) TAB PO SCH ×2 (09:49→20:16)
[2016-07-14] MEDS: FERROUS SULFATE 325 MG (IRON) TABLET PO SCH ×2 (09:49→18:17)
[2016-07-14] MEDS: ASCORBIC ACID 500 MG (VITAMIN C) TABLET PO SCH (09:49)
[2016-07-14] MEDS: ENOXAPARIN 40 MG/0.4 ML (LOVENOX) SYR SC SCH (09:50)
[2016-07-14] MEDS: SPIRONOLACTONE 25 MG (ALDACTONE) TABLET PO SCH (12:48)
--- NOTE | 2016-07-14 17:30 | NUR ---
station worker is here for a family meeting. Plan is to discharge tomorrow afternoon.
--- NOTE | 2016-07-14 20:08 | NUR ---
Pt found reclining in his chair on 4 l/min HFNC, SPO2 96%, HR 101, RR 18 and mildly labored at this time. Advair 230/21 given via Spacer and Duoneb given via SVN/MASK, both tolerated well. BS clear and diminished before and after Tx.
--- NOTE | 2016-07-14 20:17 | NUR ---
Tylenol 650 mg PO given for 'left shoulder blade' pain. Pt. resting in recliner; just finished with RT; O2 currently at 3L via NC/humidified. Pt. watching tv; very conversational with staff. Call light and H2O within reach.
[2016-07-14 20:33] VITALS: BP 130/79
[2016-07-14] MEDS: ZOLPIDEM 5 MG (AMBIEN) TAB PO PRN (22:05)
--- NOTE | 2016-07-14 22:05 | NUR ---
Ambien 5 mg and Ativan 1 mg PO given per request for sleep. H2O replenished. Pt. settled in recliner; foot rest elevated; O2 at 3L via NC; call light on lap. Pt. hopeful of another good night's sleep; "I sure enough got good rest last night-I couldn't believe it when I looked at the clock and saw that it was morning!" Pt. very conversational and pleasant.
--- NOTE | 2016-07-15 03:45 | NUR ---
Ultram 50 mg PO given for pain in 'left shoulder blade'. Pt. states he awoke early as he has "so much on my mind about today". Pt. is looking forward to dismissal although wishes he could "be on the other end of it to arrange things. 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 Coffee and fresh H2O provided; pt. resting in recliner; watching tv. Much reassurance given to pt.
[2016-07-15] MEDS: ACETAMINOPHEN 325 MG TAB (TYLENOL) PO PRN ×2 (05:47→13:55)
--- NOTE | 2016-07-15 05:48 | NUR ---
Tylenol 650 mg PO given for pain at shoulder/back. Pt. resting in recliner; drinking coffee. Pt. denies need for Ativan; "I think this Tylenol will fix me right up!". Call light on lap.
--- NOTE | 2016-07-15 06:55 | NUR ---
Pt. sleeping soundly; appears to be comfortably resting; call light within reach.
[2016-07-15] MEDS: ALBUTEROL/IPRATROPIUM 3MG-0.5MG/3ML (DUONEB) NEB VIAL INH SCH ×2 (07:24→13:30)
[2016-07-15] MEDS: FLUTICASONE/SALMETEROL HFA 230/21 MCG (ADVAIR) COMMON CANNISTER INH SCH (07:24)
[2016-07-15] MEDS: PANTOPRAZOLE 40 MG (PROTONIX) TAB PO SCH (07:39)
[2016-07-15 08:00] VITALS: BP 136/85
--- NOTE | 2016-07-15 08:15 | NUR ---
Pt sitting upright in chair, left sclera of eye remains deep red. Remains on 3L nc when resting, but with any activity, patient requests O2 increased to 6L nc, then back to 3L nc as soon as he is settled back inc hair. Calls appropriately for assist. Call light within reach.
[2016-07-15] MEDS: ASCORBIC ACID 500 MG (VITAMIN C) TABLET PO SCH (08:28)
[2016-07-15] MEDS: guaiFENesin ER 600 MG (MUCINEX) TAB PO SCH (08:28)
[2016-07-15] MEDS: ENOXAPARIN 40 MG/0.4 ML (LOVENOX) SYR SC SCH (08:28)
[2016-07-15] MEDS: FERROUS SULFATE 325 MG (IRON) TABLET PO SCH (08:28)
[2016-07-15] MEDS: AZELASTINE NS SCH (08:29)
[2016-07-15] MEDS: POLYETHYLENE GLYCOL 17 GM (MIRALAX) PACKET PO SCH (08:29)
[2016-07-15] MEDS: SPIRONOLACTONE 25 MG (ALDACTONE) TABLET PO SCH (12:38)
--- NOTE | 2016-07-15 13:55 | NUR ---
Pt given Tylenol 650mg PO for c/o left sided musculoskeletal pain under left armpit. Daughter Jocelyne has been here, states that [facility] has delivered equipment to the house. Pt awaiting to get off work for dismissal.
--- NOTE | 2016-07-15 14:40 | NUR ---
PICC line to LAC dc'd at this time. Tip intact, pressure held at site [id number]. Gauze 2x2 and coban placed to site. Pt tolerated PICC line removal but was uncomfortable when removing adhesive from skin- skin is very thin and fragile. Pt using urinal before dismissal. Discharge instructions reviewed with patient and - verbalizes understanding. copies signed/given to patient. Home medications "Tramadol" returned to patient from Pharmacy- Total of 15 tabs returned- this nurse counted pills with Maria Del Rosario Hoffmann and patient.
--- NOTE | 2016-07-15 15:09 | NUR ---
Pt dismissed to home via w/c with - accompanied by Radha Murdock CNA. Belongings with patient and . Pt thanks staff for care while here at hospital.
== END 2016-07-15 15:10 | disposition hospice, home (50) | DRG 871 ==
LOC: MED/SURG 10:35 → UNDODISIN 14:14
PROVIDERS: ADMIT Internal Medicine; ATTEND Internal Medicine
DX: A41.9 Sepsis, unspecified organism (principal); J96.20 Acute and chronic respiratory failure, unspecified whether with hypoxia or hypercapnia; J18.9 Pneumonia, unspecified organism; J44.0 Chronic obstructive pulmonary disease with (acute) lower respiratory infection; B37.81 Candidal esophagitis; J44.1 Chronic obstructive pulmonary disease with (acute) exacerbation; M34.81 Systemic sclerosis with lung involvement; Z51.5 Encounter for palliative care; M06.9 Rheumatoid arthritis, unspecified; I10 Essential (primary) hypertension; Z99.81 Dependence on supplemental oxygen; Z87.891 Personal history of nicotine dependence
CPT/HCPCS: 36415; 71020; 80069; 80202; 85025; 85610; 86140; 90654; 94640; 94760